=== PATIENT | female | born 1975 | race Caucasian/White ===

== ENCOUNTER 2019-10-19 17:49 | Emergency (ER) | payer MEDICAID ==
[~2019-10-19] VITALS: Ht 177.8 cm; Wt 104.3 kg
[2019-10-19 17:56] VITALS: BP_SYST 138
--- NOTE | 2019-10-19 18:06 | NUR ---
EKG DONE AT BEDSIDE
--- NOTE | 2019-10-19 18:08 | NUR ---
Placed in room 08 . Placed on monitoring tech, blood pressure machine and pulse oximeter. To gown for exam. Side rails up.
--- NOTE | 2019-10-19 18:10 | NUR ---
Pt AAOx4 ambulated into ED c/o 5/10 chest pressure and difficulty breathing upon waking this morning with worsening symptoms. + coughing. Pt denies n/v/d/abd pain. Skin dry and warm, labored breathing present. No other injuries/complaints per pt/noted. Will continue to monitor.
--- NOTE | 2019-10-19 18:10 | NUR ---
ER Dr. Metcalf at bedside examining patient.
[2019-10-19] MEDS ORDERED: NACL 0.9% 1,000 ML IV ONE (18:15)
[2019-10-19 18:29] LABS: BASOPHILS # (AUTO) 0.1 K/uL (0.0-0.2); BASOPHILS % (AUTO) 0.5 % (0.0-2.0); EOSINOPHILS # (AUTO) 0.1 K/uL (0.0-0.4); EOSINOPHILS % (AUTO) 0.9 % (0.0-4.0); HEMATOCRIT 44.7 % (36-48); HEMOGLOBIN 14.8 g/dL (12.0-16.0); LYMPHOCYTES # (AUTO) 1.4 K/uL (1.0-5.5); LYMPHOCYTES % (AUTO) 11.2 % (20.5-51.5); MEAN CORPUSCULAR HEMOGLOBIN 30 pg (27-31); MEAN CORPUSCULAR HGB CONC 33 % (32-36); MEAN CORPUSCULAR VOLUME 90 fL (79.0-98.0); MONOCYTES # (AUTO) 1.2 K/uL (0.0-1.0); MONOCYTES % (AUTO) 9.9 % (1.7-9.3); NEUTROPHILS # (AUTO) 9.7 K/uL (1.8-7.7); NEUTROPHILS % (AUTO) 77.5 % (40.0-70.0); PLATELET COUNT (AUTO) 342 K/uL (130-430); RED BLOOD CELL COUNT(AUTO) 4.97 MIL/uL (4.2-6.2); RED CELL DISTRIBUTION WIDTH 15.4 % (9.0-15.0); WHITE BLOOD COUNT (AUTO) 12.5 K/uL (4.8-10.8)
[2019-10-19 18:39] LABS: CALCIUM 8.1 mg/dL (8.4-11.0); CREATININE 0.81 mg/dL (0.55-1.30); POTASSIUM 3.9 mmol/L (3.5-5.1)
[2019-10-19 18:44] LABS: ALBUMIN 3.5 g/dL (3.4-4.8); TOTAL BILIRUBIN 0.7 mg/dL (0.0-1.0)
--- NOTE | 2019-10-19 20:10 | NUR ---
Pt off unit for Cta chest with contrast. Contrast consent signed
[2019-10-19] MEDS ORDERED: IOHEXOL 350 mgI/mL, 150 ML INFUS..BTL IV ONE (20:18)
[2019-10-19] MEDS ORDERED: KETOROLAC TROMETHAMINE 30 MG VIAL IVP ONE (21:30)
[2019-10-19] MEDS ORDERED: LevALBUTEROL HCL 1.25 MG/0.5 ML *CONC.* VIAL.NEB (XOPENEX CONC.) INH ONE (21:30)
[2019-10-19] MEDS ORDERED: ERYTHROMYCIN BASE 500 MG TABLET PO ONE (21:30)
--- NOTE | 2019-10-19 22:00 | NUR ---
Pt states "Im burning up, I feel really hot". Temperature re-assesed. 98.7 Degrees via Temporal Scanner
[2019-10-19] MEDS ORDERED: ERYTHROMYCIN BASE 500 MG TABLET ONE (22:18)
[2019-10-19] MEDS ORDERED: DIPHENHYDRAMINE INJ 50 MG/ML VIAL IVP ONE (23:15)
[2019-10-19] MEDS ORDERED: MORPHINE 4 MG/ML INJ. SYRINGE IVP ONE (23:15)
[2019-10-19 23:40] VITALS: BP_SYST 130
--- NOTE | 2019-10-19 23:40 | NUR ---
Patient given written and verbal discharge instructions and verbalizes understanding. ER MD discussed with patient the results and treatment provided. Patient in stable condition. ID arm band removed. IV catheter removed intact and dressing applied, no active bleeding. Rx of Tessalon, Erythromycin, ibuprofen, norco 5/325 given. Patient educated on pain management and to follow up with PMD. Pain Scale 3/10. Opportunity for questions provided and answered. Medication side effect fact sheet provided.
--- NOTE | 2019-10-20 11:36 | NUR ---
Received call from pharmacy, erythromycin not available, Per Dr Jaquez change antibiotic to Zithromax 250mg x 5 days.
== END 2019-10-19 23:40 | disposition home or self-care (01) ==
LOC: SED 17:49
DX: R07.81 Pleurodynia (principal); J98.8 Other specified respiratory disorders; I10 Essential (primary) hypertension; Z88.0 Allergy status to penicillin
CPT/HCPCS: 36415; 36600; 71045; 71275; 80053; 82803; 85025; 86710; 93005; 96374; 96375; 99284; J1200; J1885; J2270; J7030; J7612; Q9967

== ENCOUNTER 2021-04-27 13:38 | Inpatient (IN) | payer OTHER, SELFPAY ==
[~2021-04-27] VITALS: Ht 170.2 cm; Wt 133.4 kg
[~2021-04-27 13:38] MED LIST: ALBMDI INH; ASA81 PO; BIRTH CONTROL; FAMO20TA8 PO; FOLI-43 PO; GUAI5SYR PO; LIB10 PO; LISI10TA29 PO; SUCR1ORA4 GT; THIA50TA10 PO; Thiamine Hcl PO
[2021-04-27 13:46] VITALS: BP_SYST 162
--- NOTE | 2021-04-27 13:50 | NUR ---
Patient to ER bed 7 to gown for evaluation. Side rails up. Report given to Sofi BENNETT.
--- NOTE | 2021-04-27 13:55 | NUR ---
Pt walked in to ER with c/o chest pain and BLE swelling x2 days, reports drinking heavily d/t recently losing her sister. H/O HTN and Pulmonary HTN. V/S stable, no acute distress noted.
--- NOTE | 2021-04-27 14:00 | NUR ---
DR. BRUCE AT BEDSIDE TO ASSESS.
--- NOTE | 2021-04-27 14:11 | NUR ---
Lab at bedside for blood draw.
--- NOTE | 2021-04-27 14:15 | NUR ---
Radiology at bedside for CXR.
[2021-04-27 14:22] LABS: BASOPHILS # (AUTO) 0.1 K/uL (0.0-0.2); BASOPHILS % (AUTO) 0.7 % (0.0-2.0); EOSINOPHILS % (AUTO) 0.1 % (0.0-4.0); LYMPHOCYTES # (AUTO) 0.9 K/uL (1.0-5.5); MEAN CORPUSCULAR HEMOGLOBIN 27 pg (27-31); MEAN CORPUSCULAR HGB CONC 33 % (32-36); MEAN CORPUSCULAR VOLUME 84 fL (79.0-98.0); MONOCYTES # (AUTO) 0.9 K/uL (0.0-1.0); MONOCYTES % (AUTO) 8.3 % (1.7-9.3); NEUTROPHILS # (AUTO) 8.5 K/uL (1.8-7.7); NEUTROPHILS % (AUTO) 81.9 % (40.0-70.0); PLATELET COUNT (AUTO) 334 K/uL (130-430); RED BLOOD CELL COUNT(AUTO) 4.75 MIL/uL (4.2-6.2); WHITE BLOOD COUNT (AUTO) 10.4 K/uL (4.8-10.8)
[2021-04-27 14:36] LABS: CALCIUM 8.9 mg/dL (8.4-11.0); CREATININE 0.96 mg/dL (0.55-1.30); POTASSIUM 4.1 mmol/L (3.5-5.1)
[2021-04-27 14:38] LABS: PROTHROMBIN TIME 10.4 SECS (9.5-12.5)
[2021-04-27 14:41] LABS: ALBUMIN 3.9 g/dL (3.4-4.8); TOTAL BILIRUBIN 1.7 mg/dL (0.0-1.0)
[2021-04-27] MEDS ORDERED: MORPHINE 4 MG INJ. 4 MG/ML VIAL IVP ONE (15:15)
[2021-04-27] MEDS ORDERED: FUROSEMIDE 40 MG/4 ML VIAL IVP ONE (15:15)
--- NOTE | 2021-04-27 15:15 | NUR ---
# 22 gauge angiocath placed to LFA. Use of asceptic technique. Opsite placed over site. Blood return noted. Flushed with 10 cc of normal saline. No evidence of infiltration noted. Patient tolerated well.
[2021-04-27] MEDS ORDERED: ONDANSETRON HCL 4 MG/2 ML VIAL ONE (15:29)
[2021-04-27] MEDS ORDERED: ONDANSETRON HCL 4 MG/2 ML VIAL IVP ONE (15:30)
[2021-04-27] MEDS ORDERED: FLUT1BLS3 INH (15:39)
[2021-04-27] MEDS ORDERED: ESCI10TA PO (15:39)
[2021-04-27] MEDS ORDERED: FURO-149 PO (15:39)
[2021-04-27] MEDS ORDERED: VALS80TA2 PO (15:39)
--- NOTE | 2021-04-27 15:44 | NUR ---
Med rec, belongings list and famiy notified regading hospital admission
[2021-04-27] MEDS ORDERED: LORazepam 2 MG/ML VIAL IVP ONE (17:15)
--- NOTE | 2021-04-27 17:22 | NUR ---
Admit orders received from Dr. Morales, pt to go to Tele. Talked to charge nurse Diamond, no beds available, pt will be an ER hold for now.
--- NOTE | 2021-04-27 17:43 | NUR ---
Dinner tray requested for patient.
--- NOTE | 2021-04-27 19:16 | NUR ---
Care of patient endorsed to SABRINA Gusman. Pt currently resting in bed, no acute distress noted.
--- NOTE | 2021-04-27 19:17 | NUR ---
Received endorsement from day shift, AAOX4, breathing spontaneously at room air, not in distress noted, denies chest pain. With IV cannula g22 at left forearm on saline lock noted. Admitted as a case of Non STEMI under the care of Dr. Morales. Vital signs stable
--- NOTE | 2021-04-27 20:00 | NUR ---
ADMISSION NOTE Received patient from ER via gurney. Patient admitted with diagnosis of N-STEMI. Patient is awake, alert, oriented X 4. Patient oriented to hospital room, call light, toileting, pain management and safety-teach back done. Patient informed that ELIA/MARIXA will be nurse and that their room number is 118B. Personal belongings checked and Belongings List documented. Call light within reach.
--- NOTE | 2021-04-27 20:00 | NUR ---
Transfer to Telemetry 118b via ACLS protocol. Licensed nurse present. IV present no signs or symptoms of infiltration.
--- NOTE | 2021-04-27 20:10 | NUR ---
Endorsed to SABRINA Dewitt in stable condition for continuity of care
[2021-04-27 20:15] VITALS: BP_SYST 119
[2021-04-27] MEDS ORDERED: NALOXONE HCL 0.4 MG/ML AMP (NARCAN) IVP PRN (22:15)
[2021-04-27] MEDS ORDERED: *LOVENOX 1MG/KG Q12H/PHARMACY XX ONE (22:15)
[2021-04-27] MEDS ORDERED: ACETAMINOPHEN 325 MG TABLET PO PRN (22:15)
[2021-04-27] MEDS ORDERED: MORPHINE 4 MG INJ. 4 MG/ML VIAL IVP PRN (22:15)
[2021-04-27] MEDS ORDERED: ASPIRIN 325 MG TABLET PO SCH (22:15)
[2021-04-27 22:20] VITALS: BP_SYST 119
[2021-04-27] MEDS ORDERED: ASPIRIN 325 MG TABLET (ECOTRIN) PO ONE (22:31)
[2021-04-27] MEDS ORDERED: ENOXAPARIN SODIUM 100 MG/ML SYRINGE ONE (22:32)
[2021-04-27] MEDS ORDERED: ENOXAPARIN SODIUM 40 MG/0.4 ML SYRINGE ONE (22:33)
[2021-04-27] MEDS: ENOXAPARIN SODIUM 40 MG/0.4 ML SYRINGE SUBCUT SCH (22:34)
[2021-04-27] MEDS: ENOXAPARIN SODIUM 100 MG/ML SYRINGE SUBCUT SCH (22:35)
[2021-04-27] MEDS ORDERED: ASPIRIN 325 MG TABLET PO ONE (22:45)
[2021-04-27] MEDS: ALBUTEROL SULFATE 0.083% 2.5 MG/3 ML VIAL.NEB INH SCH (23:11)
--- NOTE | 2021-04-27 23:33 | NUR ---
NOTIFIED DR. RAMAN REGARDING PT CRITICAL LAB (TROPONIN 0.205). NO NEW ORDER RECEIVED.
[2021-04-28] VITALS: BP_SYST 113
--- NOTE | 2021-04-28 03:30 | NUR ---
DR. POLANCO AT THE BEDSIDE.
[2021-04-28] MEDS: MORPHINE 2 MG/ML INJ. SYRINGE IVP PRN ×4 (03:38→21:26)
[2021-04-28] MEDS ORDERED: ONDANSETRON HCL 4 MG/2 ML VIAL IVP PRN (03:45)
--- NOTE | 2021-04-28 04:35 | NUR ---
CONSULT REASON FOR CONSULT: NSTEMI PERSON I SPOKE WITH: CONNIE CONSULTING PHYSICIAN: DR. ANTON SIGN BUILDER PHONE NUMBER: [phone] ORDERING PHYSICIAN: DR. POLANCO
[2021-04-28] MEDS: NORMAL SALINE 5 ML DISP.SYRIN IVF SCH ×3 (06:18→21:24)
[2021-04-28 06:32] LABS: BASOPHILS # (AUTO) 0.1 K/uL (0.0-0.2); BASOPHILS % (AUTO) 1.1 % (0.0-2.0); EOSINOPHILS # (AUTO) 0.1 K/uL (0.0-0.4); EOSINOPHILS % (AUTO) 1.3 % (0.0-4.0); HEMATOCRIT 39.3 % (36-48); HEMOGLOBIN 12.6 g/dL (12.0-16.0); LYMPHOCYTES # (AUTO) 1.6 K/uL (1.0-5.5); LYMPHOCYTES % (AUTO) 21.3 % (20.5-51.5); MEAN CORPUSCULAR HEMOGLOBIN 27 pg (27-31); MEAN CORPUSCULAR HGB CONC 32 % (32-36); MEAN CORPUSCULAR VOLUME 85 fL (79.0-98.0); MONOCYTES % (AUTO) 13.5 % (1.7-9.3); NEUTROPHILS # (AUTO) 4.7 K/uL (1.8-7.7); NEUTROPHILS % (AUTO) 62.8 % (40.0-70.0); PLATELET COUNT (AUTO) 318 K/uL (130-430); RED BLOOD CELL COUNT(AUTO) 4.64 MIL/uL (4.2-6.2); WHITE BLOOD COUNT (AUTO) 7.5 K/uL (4.8-10.8)
--- NOTE | 2021-04-28 06:57 | NUR ---
CLOSING NOTE PATIENT IS RESTING IN HER BED. NO SIGNS OF ACUTE DISTRESS NOTED. PATIENT DENIES ANY PAIN AT THIS TIME. PATIENT IS BREATHING EASY AND UNLABORED. PATIENT IS ON 3L OF NC. NO SIGNS OF RESPIRATORY DISTRESS NOTED. IV IS INTACT AND SALINE LOCKED. NO SIGNS OF INFILTRATION NOTED. CALL LIGHT WITHIN REACH. BED ALARM IS ON. BED IS LOCKED AND PLACED IN THE LOWEST POSITION. SAFETY AND FALL PRECAUTIONS IN PLACED. ALL NEEDS ARE MET THROUGHOUT SHIFT. WILL CONTINUE TO MONITOR UNTIL ENDORSE TO DAY SHIFT RN.
[2021-04-28 07:15] LABS: ALBUMIN 3.4 g/dL (3.4-4.8); CALCIUM 8.8 mg/dL (8.4-11.0); CREATININE 0.84 mg/dL (0.55-1.30); POTASSIUM 3.3 mmol/L (3.5-5.1); TOTAL BILIRUBIN 1.5 mg/dL (0.0-1.0)
[2021-04-28 07:45] VITALS: BP_SYST 131
[2021-04-28] MEDS: CITALOPRAM HYDROBROMIDE 20 MG TABLET PO SCH (08:42)
[2021-04-28] MEDS: ASPIRIN 325 MG TABLET PO SCH (08:42)
[2021-04-28] MEDS: NEPHROVITE, (FOLIC ACID/VITAMIN B COMP W-C 1 TAB) PO SCH (08:42)
[2021-04-28] MEDS: FUROSEMIDE 40 MG TABLET PO SCH (08:43)
[2021-04-28] MEDS: LOSARTAN POTASSIUM 50 MG TABLET (COZAAR) PO SCH (08:44)
[2021-04-28] MEDS: ALBUTEROL SULFATE 0.083% 2.5 MG/3 ML VIAL.NEB INH SCH ×5 (08:45→23:42)
[2021-04-28] MEDS: ENOXAPARIN SODIUM 40 MG/0.4 ML SYRINGE SUBCUT SCH (08:45)
[2021-04-28] MEDS: BUDESONIDE 0.5 MG/2 ML AMPUL.NEB INH SCH ×2 (08:46→19:00)
[2021-04-28] MEDS: ENOXAPARIN SODIUM 100 MG/ML SYRINGE SUBCUT SCH (08:46)
[2021-04-28] MEDS ORDERED: FLUTICASONE/VILANTEROL 1 EACH BLST.W.DEV INH SCH (09:00)
--- NOTE | 2021-04-28 09:50 | NUR ---
ASSESSED AND EXAMINED PT , THIS RN CONCURS WITH EMILE CALVIN'S ASSESSMENT OF PT.
[2021-04-28] MEDS: THIAMINE HCL 100 MG TABLET PO SCH (09:52)
[2021-04-28] MEDS: LORazepam 2 MG/ML VIAL IVP PRN (09:52)
[2021-04-28] MEDS: FOLIC ACID 1 MG TABLET PO SCH (09:52)
--- NOTE | 2021-04-28 09:52 | NUR ---
pt given ativan for anxiety.
--- NOTE | 2021-04-28 10:10 | NUR ---
PT GIVEN MORPHINE FOR LEFT SIDED CHEST PAIN.
--- NOTE | 2021-04-28 10:13 | NUR ---
DR YIP HERE AND SPOKE WITH PT.
[2021-04-28] MEDS ORDERED: POTASSIUM CHLORIDE 20 MEQ TAB.PRT.SR PO ONE (10:45)
[2021-04-28 12:56] VITALS: BP_SYST 113
[2021-04-28 14:07] LABS: BARBITURATE, URINE NEGATIVE (NEG <=200); BENZODIAZEPINE, URINE POSITIVE (NEG <=150); CANNABINOID, URINE NEGATIVE (NEG <=50); COCAINE, URINE NEGATIVE (NEG <=150); METHAMPHETAMINES SCREEN,URINE NEGATIVE (NEG <=500); OPIATE, URINE POSITIVE (NEG <=100); PHENCYCLIDINE SCREEN,URINE NEGATIVE (NEG <=25); UR TRICYCLIC ANTIDEPRESSANTS NEGATIVE (NEG <=300); URINE AMPHETAMINE NEGATIVE (NEG <=500); URINE METHADONE NEGATIVE (NEG <=200); URINE OXYCODONE SCREEN NEGATIVE (NEG <=100); URINE PROPOXYPHENE SCREEN NEGATIVE (NEG <=300)
--- NOTE | 2021-04-28 14:56 | NUR ---
rounded on patient, patient in bed, no complaints of pain.
[2021-04-28 16:07] VITALS: BP_SYST 130
--- NOTE | 2021-04-28 18:40 | NUR ---
CLOSING NOTES, PT STILL C/O LEFT SHOULDER PAIN, GIVEN PAIN MEDS 2X AND ALSO GIVEN X1 ATIVAN FOR ANXIETY. THIS AM PT WAS NOTED TO BE SOB AFTER AMBULATING TO THE BATHROOM. SEEN BY DR ANTON AND DR YIP. PT DENIES PAIN AT THIS TIME. WILL ENDORSE TO NIGHT NURSE.
--- NOTE | 2021-04-28 19:30 | NUR ---
OPENING NOTE RECEIVED PATIENT REPORT FROM DAY SHIFT RN. PATIENT IS RESTING IN HER BED. NO SIGNS OF ACUTE DISTRESS NOTED. PATIENT DENIES CHEST PAIN AT THIS TIME. PATIENT IS BREATHING EASY AND UNLABORED. PATIENT IS ON 3L OF NC. NO SIGNS OF RESPIRATORY DISTRESS NOTED. IV IS INTACT AND SALINE LOCKED. NO SIGNS OF INFILTRATION NOTED. CALL LIGHT WITHIN REACH. BED ALARM IS ON. BED IS LOCKED AND PLACED IN THE LOWEST POSITION. SAFETY AND FALL PRECAUTIONS IN PLACED. WILL CONTINUE TO MONITOR.
[2021-04-28 20:00] VITALS: BP_SYST 113
--- NOTE | 2021-04-28 21:30 | NUR ---
UPDATED TO WALE (MOTHER).
--- NOTE | 2021-04-28 23:55 | NUR ---
HUNG VANCOMYCIN ORDERED RATE. NO SIGNS OF ADVERSE REACTION NOTED. PATIENT TOLERATING WELL. WILL CONTINUE TO MONITOR. Addendum: 04/29/21 at 0358 by Nikita Ibarra RN DISCARD. WRONG PATIENT
[2021-04-29] VITALS: BP_SYST 123
[2021-04-29] MEDS: ALBUTEROL SULFATE 0.083% 2.5 MG/3 ML VIAL.NEB INH SCH ×6 (03:00→23:00)
[2021-04-29] MEDS: NORMAL SALINE 5 ML DISP.SYRIN IVF SCH ×3 (05:47→23:05)
[2021-04-29] MEDS: LORazepam 2 MG/ML VIAL IVP PRN ×3 (06:06→23:06)
--- NOTE | 2021-04-29 06:59 | NUR ---
CLOSING NOTE PATIENT IS RESTING IN HER BED. NO SIGNS OF ACUTE DISTRESS NOTED. PATIENT DENIES CHEST PAIN AT THIS TIME. PATIENT IS BREATHING EASY AND UNLABORED. PATIENT IS ON 3L OF NC. NO SIGNS OF RESPIRATORY DISTRESS NOTED. IV IS INTACT AND SALINE LOCKED. NO SIGNS OF INFILTRATION NOTED. CALL LIGHT WITHIN REACH. BED ALARM IS ON. BED IS LOCKED AND PLACED IN THE LOWEST POSITION. SAFETY AND FALL PRECAUTIONS IN PLACED. ALL NEEDS ARE MET THROUGHOUT SHIFT. WILL CONTINUE TO MONITOR UNTIL ENDORSE TO DAY SHIFT RN.
[2021-04-29] MEDS: BUDESONIDE 0.5 MG/2 ML AMPUL.NEB INH SCH ×2 (07:25→19:00)
--- NOTE | 2021-04-29 08:20 | NUR ---
Opening note Patient is resting in bed A&Ox4. No complaint of pain or discomfort, no signs or symptoms of respiratory distress. Iv is in place, no signs or symptoms of infiltration. Educated patient on plan of care, patient verbalized understanding Bed is in lowest position, fall and aspiration precautions are in place. Will continue to monitor.
[2021-04-29 08:35] VITALS: BP_SYST 115
[2021-04-29] MEDS: ASPIRIN 325 MG TABLET PO SCH (08:39)
[2021-04-29] MEDS: CITALOPRAM HYDROBROMIDE 20 MG TABLET PO SCH (08:39)
[2021-04-29] MEDS: LOSARTAN POTASSIUM 50 MG TABLET (COZAAR) PO SCH (08:39)
[2021-04-29] MEDS: FUROSEMIDE 40 MG TABLET PO SCH (08:40)
[2021-04-29] MEDS: NEPHROVITE, (FOLIC ACID/VITAMIN B COMP W-C 1 TAB) PO SCH (08:40)
[2021-04-29] MEDS: FOLIC ACID 1 MG TABLET PO SCH (08:40)
[2021-04-29] MEDS: THIAMINE HCL 100 MG TABLET PO SCH (08:40)
--- NOTE | 2021-04-29 11:55 | NUR ---
CONSULT PULMONOLOGY RESP FAILURE MOODY MORENO SENT PAGE TO DR MCCARTNEY
[2021-04-29 12:00] VITALS: BP_SYST 108
--- NOTE | 2021-04-29 12:57 | NUR ---
Dietitian Recommendations *Continue Cardiac diet. *Encourage lifestyle changes and diet modification for weight loss. Please see Nutritional Assessment for details KAMLESH WIN
[2021-04-29 15:35] LABS: BASOPHILS # (AUTO) 0.1 K/uL (0.0-0.2); BASOPHILS % (AUTO) 0.9 % (0.0-2.0); EOSINOPHILS # (AUTO) 0.2 K/uL (0.0-0.4); EOSINOPHILS % (AUTO) 2.4 % (0.0-4.0); HEMATOCRIT 39.1 % (36-48); HEMOGLOBIN 12.6 g/dL (12.0-16.0); LYMPHOCYTES # (AUTO) 1.1 K/uL (1.0-5.5); LYMPHOCYTES % (AUTO) 16.3 % (20.5-51.5); MEAN CORPUSCULAR HEMOGLOBIN 28 pg (27-31); MEAN CORPUSCULAR HGB CONC 32 % (32-36); MEAN CORPUSCULAR VOLUME 86 fL (79.0-98.0); MONOCYTES # (AUTO) 0.9 K/uL (0.0-1.0); MONOCYTES % (AUTO) 12.7 % (1.7-9.3); NEUTROPHILS # (AUTO) 4.5 K/uL (1.8-7.7); NEUTROPHILS % (AUTO) 67.7 % (40.0-70.0); PLATELET COUNT (AUTO) 300 K/uL (130-430); RED BLOOD CELL COUNT(AUTO) 4.56 MIL/uL (4.2-6.2); RED CELL DISTRIBUTION WIDTH 17.2 % (9.0-15.0); WHITE BLOOD COUNT (AUTO) 6.7 K/uL (4.8-10.8)
[2021-04-29 15:53] LABS: CALCIUM 9.2 mg/dL (8.4-11.0); CREATININE 1.03 mg/dL (0.55-1.30); POTASSIUM 4.1 mmol/L (3.5-5.1)
--- NOTE | 2021-04-29 18:36 | NUR ---
Closing note Patient is resting in bed A&Ox4. No complaint of pain or discomfort, no signs or symptoms of respiratory distress. Iv is in place, no signs or symptoms of infiltration. All needs were met. Bed is in lowest position, fall and aspiration precautions are in place. Will endorse report to night auditor.
--- NOTE | 2021-04-29 19:30 | NUR ---
Opening note: Patient is resting in bed A&Ox4. No complaint of pain or discomfort, no signs or symptoms of respiratory distress. Iv is in place, no signs or symptoms of infiltration. Breathing nonlabored to O2 via nasal canula @3L. Bed is in lowest position, fall and aspiration precautions are in place. Will continue to monitor.
[2021-04-29 20:00] VITALS: BP_SYST 121
--- NOTE | 2021-04-29 22:35 | NUR ---
RN Rounds pt vital signs stable. pt complain of pain in upper anterior thigh areas upon movement. She states they "hurt more now that swelling is down" will medicate for pain
[2021-04-29] MEDS: MORPHINE 2 MG/ML INJ. SYRINGE IVP PRN (23:16)
[2021-04-30] VITALS (7 sets, daily range): BP systolic 102–115
--- NOTE | 2021-04-30 02:00 | NUR ---
RN Rounds pt vital signs stable. pt resting in bed. no s/s of acute distress noted. will ctm.
[2021-04-30] MEDS: ALBUTEROL SULFATE 0.083% 2.5 MG/3 ML VIAL.NEB INH SCH ×3 (03:00→15:49)
[2021-04-30] MEDS: NORMAL SALINE 5 ML DISP.SYRIN IVF SCH ×2 (05:40→17:19)
--- NOTE | 2021-04-30 06:33 | NUR ---
Closing note: Patient is resting in bed A&Ox4. Iv is in place, no signs or symptoms of infiltration. Breathing nonlabored to O2 via nasal canula @3L. Bed is in lowest position, fall and aspiration precautions maintained throughout shift. All needs met throughout shift. Will continue to monitor until care endorsed to dayshift RN.
[2021-04-30 06:47] LABS: CREATININE 0.79 mg/dL (0.55-1.30); POTASSIUM 3.9 mmol/L (3.5-5.1)
[2021-04-30 06:52] LABS: BASOPHILS # (AUTO) 0.1 K/uL (0.0-0.2); BASOPHILS % (AUTO) 1.1 % (0.0-2.0); EOSINOPHILS # (AUTO) 0.2 K/uL (0.0-0.4); HEMATOCRIT 40.9 % (36-48); HEMOGLOBIN 12.8 g/dL (12.0-16.0); LYMPHOCYTES # (AUTO) 1.5 K/uL (1.0-5.5); LYMPHOCYTES % (AUTO) 22.4 % (20.5-51.5); MEAN CORPUSCULAR HEMOGLOBIN 27 pg (27-31); MEAN CORPUSCULAR HGB CONC 31 % (32-36); MEAN CORPUSCULAR VOLUME 86 fL (79.0-98.0); MONOCYTES # (AUTO) 0.9 K/uL (0.0-1.0); MONOCYTES % (AUTO) 13.8 % (1.7-9.3); NEUTROPHILS % (AUTO) 59.7 % (40.0-70.0); PLATELET COUNT (AUTO) 304 K/uL (130-430); RED BLOOD CELL COUNT(AUTO) 4.73 MIL/uL (4.2-6.2); RED CELL DISTRIBUTION WIDTH 17.8 % (9.0-15.0); WHITE BLOOD COUNT (AUTO) 6.7 K/uL (4.8-10.8)
--- NOTE | 2021-04-30 07:30 | NUR ---
AM ROUNDS: PATIENT SLEEPING DURING ROUNDS. O2 2L/NC,GOOD SATURATION. IV SALINE LOCK AT LEFT ARM INTACT,WITH SMALL BRUISED NEAR THE SITE.SAFETY MEASURES RENDERED. STABLE.
[2021-04-30] MEDS: BUDESONIDE 0.5 MG/2 ML AMPUL.NEB INH SCH (08:26)
[2021-04-30] MEDS: LOSARTAN POTASSIUM 50 MG TABLET (COZAAR) PO SCH (09:00)
[2021-04-30] MEDS ORDERED: ALBU8.5H8 INH (09:35)
[2021-04-30] MEDS: CITALOPRAM HYDROBROMIDE 20 MG TABLET PO SCH (09:42)
[2021-04-30] MEDS: NEPHROVITE, (FOLIC ACID/VITAMIN B COMP W-C 1 TAB) PO SCH (09:42)
[2021-04-30] MEDS: THIAMINE HCL 100 MG TABLET PO SCH (09:43)
[2021-04-30] MEDS: ASPIRIN 325 MG TABLET PO SCH (09:44)
[2021-04-30] MEDS: FOLIC ACID 1 MG TABLET PO SCH (09:44)
[2021-04-30] MEDS: FUROSEMIDE 40 MG TABLET PO SCH (09:44)
[2021-04-30] MEDS: LORazepam 2 MG/ML VIAL IVP PRN ×2 (09:57→18:55)
[2021-04-30] MEDS ORDERED: POLYETHYLENE GLYCOL 3350, 17 GM/ POWD.PACK PO ONE (10:15)
--- NOTE | 2021-04-30 10:33 | NUR ---
SYRUP MAKER COOK received a referral for Fuel Testing Technician consult, to provide supportive services to Pt. with a HX of depression and current ETOH abuse. Pt. was open to speak with SYRUP MAKER COOK, she relayed that she recently lost her sister to stage 4 cancer and she has been feeling depressed and has resumed drinking heavily, she denied any present S/I. 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 Pt. is currently taking Lexapro, Rx is through her PCP and is medication compliant. She is not in OP MH Tx or engaging in therapy. SYRUP MAKER COOK provided supportive counseling and psychoeducation regarding co- occurring disorders and MAT, namely Vivitrol for ETOH Abuse Tx. Pt. was able to identify her support system as her mother, niece and a friend who runs an A/A group on-line. Pt. intends to enter [facility] [place] for alcohol abuse. [facility] provided Pt. with a list of local agencies that are covered through her health plan [employer], for intensive outpatient services for co-occurring disorders and MAT Tx. Pt. appears motivated to obtain sobriety, she was encouraged to look into MH Tx , to assist her in the grief process, depression and support her in her recovery. Pt. was receptive and indicated she would contact the agencies because she want to feel better overall. No further inquiry or request from Pt. at this time. Fuel Testing Technician will remain available as needed.
[2021-04-30] MEDS: MORPHINE 2 MG/ML INJ. SYRINGE IVP PRN (13:16)
--- NOTE | 2021-04-30 13:20 | NUR ---
Ultrasound: Bilateral thigh ultrasound ,tech at the bedside,start up.
--- NOTE | 2021-04-30 17:20 | NUR ---
CALLED [facility] MS RIGO PERSAUD, RE: O2 FOR HOME USE. RIGO GAVE ME THE NUMBER OF [employer] TO FOLLOW UP THE TIME OF DELIVERY OF THE O2.
--- NOTE | 2021-04-30 17:47 | NUR ---
SPOKE TO JESSICA OF [facility], ETA FOR THE PORTABLE O2 TANK DELIVERY IS BETWEEN 1800 - 2100 TODAY, SAME WITH THE O2 CONCENTRATOR THAT WILL BE DELIVERED IN THE HOUSE ALSO BETWEEN 1800 - 2100. JESSICA OF [facility] STRESSED THAT PT HAS A CO PAY OF 15%. NOTIFIED SABRINA CISNEROS TO INFORM PT OF THE CONVERSATION WITH [facility]. TEL # OF [facility] IS [phone].
--- NOTE | 2021-04-30 18:43 | NUR ---
END OF SHIFT: PATIENT INSTRUCTED REGARDING OXYGEN DELIVERY AT HOME/HOSPITAL FOR PORTABLE O2 TANK BETWEEN 6PM-9PM. STABLE. SAFETY MEASURES RENDERED.DC HOME TONIGHT WITH HOME O2 USE ARRANGED BY HCP CASE MGT.WAITING FOR PORTABLE O2 DELIVERY HERE AT THE HOSPITAL.
--- NOTE | 2021-04-30 19:30 | NUR ---
[facility] Await[facility] O2 delivery for pt to be discharged to home with home health + portable home oxygen 2 LNC. Pt vital signs stable. Will continue to monitor.
[2021-05-01] MEDS ORDERED: POLYETHYLENE GLYCOL 3350, 17 GM/ POWD.PACK PO SCH (09:00)
== END 2021-04-30 20:30 | disposition home health service (06) | DRG 280 ==
LOC: SED 13:38 → STU 17:18
PROVIDERS: ADMIT Internal Medicine Hospice and Palliative Medicine; ATTEND Internal Medicine Hospice and Palliative Medicine
DX: I27.20 Pulmonary hypertension, unspecified (principal); J96.01 Acute respiratory failure with hypoxia; I21.A1 Myocardial infarction type 2; E87.1 Hypo-osmolality and hyponatremia; Z68.42 Body mass index [BMI] 45.0-49.9, adult; I42.9 Cardiomyopathy, unspecified; I11.0 Hypertensive heart disease with heart failure; Y90.9 Presence of alcohol in blood, level not specified; I27.81 Cor pulmonale (chronic); E80.6 Other disorders of bilirubin metabolism; E66.01 Morbid (severe) obesity due to excess calories; F10.20 Alcohol dependence, uncomplicated; J44.9 Chronic obstructive pulmonary disease, unspecified; G47.30 Sleep apnea, unspecified; I87.8 Other specified disorders of veins; Z20.822 Contact with and (suspected) exposure to COVID-19; F32.9 Major depressive disorder, single episode, unspecified; I50.9 Heart failure, unspecified; Z88.0 Allergy status to penicillin; Z79.899 Other long term (current) drug therapy; I25.2 Old myocardial infarction; Z82.49 Family history of ischemic heart disease and other diseases of the circulatory system
CPT/HCPCS: 36415; 36600; 71045; 80048; 80053; 80061; 80307; 82150; 82803-TC; 83690; 83880; 84484; 85025; 85379; 85610-TC; 85730-TC; 93005; 93970; 94640; 94760; 96374; 96375; 99285; G0378; J1650; J1940; J2060; J2270; J2405; J7613; J7626

== ENCOUNTER 2022-01-21 10:53 | Inpatient (IN) | payer OTHER, SELFPAY ==
[~2022-01-21] VITALS: Ht 170.2 cm; Wt 127.0 kg
[2022-01-21 10:53] VITALS: BP_SYST 146
[~2022-01-21 10:53] MED LIST changes: -ALBMDI INH; -ASA81 PO; +ASPI-1155 PO; -BIRTH CONTROL; -FAMO20TA8 PO; +FLUT1BLS3 INH; -FOLI-43 PO; +FURO-149 PO; -GUAI5SYR PO; -LIB10 PO; -LISI10TA29 PO; +POTA-197 PO; +SILD20TA2 PO; -SUCR1ORA4 GT; -THIA50TA10 PO; -Thiamine Hcl PO; +VALS80TA2 PO
[2022-01-21] MEDS ORDERED: IPRATROPIUM/ALBUTEROL SULFATE 3 ML AMPUL.NEB (DUONEB) INH ONE (11:45)
[2022-01-21] MEDS ORDERED: IOHEXOL 350 mgI/mL, 150 ML INFUS..BTL IV ONE (11:46)
[2022-01-21 11:47] LABS: BASOPHILS % (AUTO) 0.7 % (0.0-2.0); EOSINOPHILS % (AUTO) 0.9 % (0.0-4.0); HEMATOCRIT 38.8 % (36-48); HEMOGLOBIN 13.2 g/dL (12.0-16.0); LYMPHOCYTES # (AUTO) 0.9 K/uL (1.0-5.5); LYMPHOCYTES % (AUTO) 20.1 % (20.5-51.5); MEAN CORPUSCULAR HEMOGLOBIN 31 pg (27-31); MEAN CORPUSCULAR HGB CONC 34 % (32-36); MEAN CORPUSCULAR VOLUME 90 fL (79.0-98.0); MONOCYTES # (AUTO) 0.5 K/uL (0.0-1.0); MONOCYTES % (AUTO) 11.1 % (1.7-9.3); NEUTROPHILS % (AUTO) 67.2 % (40.0-70.0); PLATELET COUNT (AUTO) 297 K/uL (130-430); RED BLOOD CELL COUNT(AUTO) 4.32 MIL/uL (4.2-6.2); RED CELL DISTRIBUTION WIDTH 17.9 % (9.0-15.0); WHITE BLOOD COUNT (AUTO) 4.4 K/uL (4.8-10.8)
[2022-01-21 12:08] LABS: CALCIUM 9.4 mg/dL (8.4-11.0); CREATININE 0.86 mg/dL (0.55-1.30); POTASSIUM 3.5 mmol/L (3.5-5.1)
[2022-01-21 12:17] LABS: ALBUMIN 3.7 g/dL (3.4-4.8); TOTAL BILIRUBIN 1.4 mg/dL (0.0-1.0)
[2022-01-21] MEDS ORDERED: ONDANSETRON HCL 4 MG/2 ML VIAL IVP ONE ×2 (12:30→18:45)
[2022-01-21] MEDS ORDERED: KETOROLAC TROMETHAMINE 30 MG VIAL IVP ONE (14:15)
[2022-01-21] MEDS ORDERED: ASPIRIN 325 MG TABLET PO ONE (14:15)
[2022-01-21 15:57] VITALS: BP_SYST 122
[2022-01-21 16:09] VITALS: BP_SYST 122
[2022-01-21] MEDS ORDERED: ALBUTEROL SULFATE 0.083% 2.5 MG/3 ML VIAL.NEB INH PRN (16:15)
[2022-01-21] MEDS ORDERED: IPRATROPIUM BROM 0.5 MG/2.5 ML VIAL.NEB (ATROVENT) INH PRN (16:15)
[2022-01-21] MEDS ORDERED: ASPIRIN 81 MG TAB.CHEW PO ONE (16:30)
[2022-01-21] MEDS: AZITHROMYCIN 500 MG in NS 250 ML IV SCH (18:08)
[2022-01-21] MEDS: IPRATROPIUM BROM 0.5 MG/2.5 ML VIAL.NEB (ATROVENT) INH SCH (20:04)
[2022-01-21] MEDS: BUDESONIDE 0.5 MG/2 ML AMPUL.NEB INH SCH (20:04)
[2022-01-21] MEDS: ALBUTEROL SULFATE 0.083% 2.5 MG/3 ML VIAL.NEB INH SCH (20:04)
[2022-01-21 20:30] VITALS: BP_SYST 130
[2022-01-21] MEDS: SILDENAFIL CITRATE 20 MG TABLET PO SCH (21:47)
[2022-01-21] MEDS: methylPREDNISolone SOD SUCC/PF 62.5 MG/ML VIAL IVP SCH (21:48)
[2022-01-21] MEDS: MORPHINE 2 MG/ML INJ. SYRINGE IVP PRN (22:08)
[2022-01-22 00:20] VITALS: BP_SYST 140
[2022-01-22] MEDS: ALBUTEROL SULFATE 0.083% 2.5 MG/3 ML VIAL.NEB INH SCH ×4 (02:10→20:21)
[2022-01-22] MEDS: IPRATROPIUM BROM 0.5 MG/2.5 ML VIAL.NEB (ATROVENT) INH SCH ×4 (02:10→20:21)
[2022-01-22] MEDS: MORPHINE 2 MG/ML INJ. SYRINGE IVP PRN ×3 (02:46→23:24)
[2022-01-22] MEDS: methylPREDNISolone SOD SUCC/PF 62.5 MG/ML VIAL IVP SCH ×3 (06:18→23:19)
[2022-01-22] MEDS: BUDESONIDE 0.5 MG/2 ML AMPUL.NEB INH SCH ×2 (07:00→20:21)
[2022-01-22 07:46] LABS: BASOPHILS % (AUTO) 0.1 % (0.0-2.0); LYMPHOCYTES # (AUTO) 0.3 K/uL (1.0-5.5); LYMPHOCYTES % (AUTO) 6.8 % (20.5-51.5); MEAN CORPUSCULAR HEMOGLOBIN 30 pg (27-31); MEAN CORPUSCULAR HGB CONC 33 % (32-36); MEAN CORPUSCULAR VOLUME 91 fL (79.0-98.0); MONOCYTES # (AUTO) 0.1 K/uL (0.0-1.0); MONOCYTES % (AUTO) 1.6 % (1.7-9.3); NEUTROPHILS # (AUTO) 3.9 K/uL (1.8-7.7); NEUTROPHILS % (AUTO) 91.5 % (40.0-70.0); PLATELET COUNT (AUTO) 283 K/uL (130-430); RED CELL DISTRIBUTION WIDTH 17.6 % (9.0-15.0); WHITE BLOOD COUNT (AUTO) 4.2 K/uL (4.8-10.8)
[2022-01-22 08:00] VITALS: BP_SYST 138
[2022-01-22 08:33] LABS: ALBUMIN 3.5 g/dL (3.4-4.8); CALCIUM 9.5 mg/dL (8.4-11.0); CREATININE 0.9 mg/dL (0.55-1.30); POTASSIUM 4.7 mmol/L (3.5-5.1); TOTAL BILIRUBIN 0.5 mg/dL (0.0-1.0)
[2022-01-22] MEDS ORDERED: VALSARTAN 80 MG TABLET (DIOVAN) PO SCH (09:00)
[2022-01-22] MEDS ORDERED: FLUTICASONE/VILANTEROL 1 EACH BLST.W.DEV INH SCH (09:00)
[2022-01-22] MEDS: ASPIRIN 81 MG TAB.CHEW PO SCH (09:10)
[2022-01-22] MEDS: LOSARTAN POTASSIUM 50 MG TABLET (COZAAR) PO SCH (09:11)
[2022-01-22] MEDS: FUROSEMIDE 40 MG TABLET PO SCH (09:11)
[2022-01-22] MEDS: POTASSIUM CHLORIDE 10 MEQ TAB.PRT.SR PO SCH (09:11)
[2022-01-22] MEDS ORDERED: FUROSEMIDE 40 MG TABLET ONE (09:14)
[2022-01-22] MEDS ORDERED: LOSARTAN POTASSIUM 50 MG TABLET (COZAAR) ONE (09:14)
[2022-01-22] MEDS ORDERED: POTASSIUM CHLORIDE 10 MEQ TAB.PRT.SR ONE (09:15)
[2022-01-22] MEDS: THIAMINE HCL 100 MG TABLET PO SCH (09:41)
[2022-01-22] MEDS: SILDENAFIL CITRATE 20 MG TABLET PO SCH ×3 (09:41→23:19)
[2022-01-22 12:00] VITALS: BP_SYST 131
[2022-01-22] MEDS: LORazepam 2 MG/ML VIAL IVP PRN ×2 (15:52→23:23)
[2022-01-22 16:00] VITALS: BP_SYST 128
[2022-01-22] MEDS: AZITHROMYCIN 500 MG in NS 250 ML IV SCH (16:31)
[2022-01-22 20:20] VITALS: BP_SYST 114
[2022-01-23 00:21] VITALS: BP_SYST 126
[2022-01-23] MEDS: ALBUTEROL SULFATE 0.083% 2.5 MG/3 ML VIAL.NEB INH SCH ×4 (01:48→20:08)
[2022-01-23] MEDS: IPRATROPIUM BROM 0.5 MG/2.5 ML VIAL.NEB (ATROVENT) INH SCH ×4 (01:48→20:08)
[2022-01-23] MEDS: methylPREDNISolone SOD SUCC/PF 62.5 MG/ML VIAL IVP SCH (05:50)
[2022-01-23] MEDS: LORazepam 2 MG/ML VIAL IVP PRN ×3 (05:51→20:32)
[2022-01-23] MEDS: MORPHINE 2 MG/ML INJ. SYRINGE IVP PRN ×2 (05:52→20:32)
[2022-01-23] MEDS: BUDESONIDE 0.5 MG/2 ML AMPUL.NEB INH SCH ×2 (07:38→20:09)
[2022-01-23 08:00] VITALS: BP_SYST 135
[2022-01-23 08:09] LABS: ALBUMIN 3.1 g/dL (3.4-4.8); CALCIUM 9.1 mg/dL (8.4-11.0); CREATININE 0.74 mg/dL (0.55-1.30); POTASSIUM 3.9 mmol/L (3.5-5.1); TOTAL BILIRUBIN 0.5 mg/dL (0.0-1.0)
[2022-01-23] MEDS: THIAMINE HCL 100 MG TABLET PO SCH (09:36)
[2022-01-23] MEDS: ASPIRIN 81 MG TAB.CHEW PO SCH (09:36)
[2022-01-23] MEDS: POTASSIUM CHLORIDE 10 MEQ TAB.PRT.SR PO SCH (09:36)
[2022-01-23] MEDS: LOSARTAN POTASSIUM 50 MG TABLET (COZAAR) PO SCH (09:38)
[2022-01-23] MEDS: FUROSEMIDE 40 MG TABLET PO SCH (09:39)
[2022-01-23 10:02] LABS: THYROID STIMULATING HORMONE 0.53 uIu/mL (0.36-3.74)
[2022-01-23 10:07] VITALS: BP_SYST 130
[2022-01-23] MEDS: SILDENAFIL CITRATE 20 MG TABLET PO SCH ×2 (10:29→15:46)
[2022-01-23 12:00] VITALS: BP_SYST 112
[2022-01-23] MEDS ORDERED: PRED10TA PO (12:41)
[2022-01-23 16:00] VITALS: BP_SYST 135
[2022-01-23] MEDS: AZITHROMYCIN 500 MG in NS 250 ML IV SCH (17:40)
[2022-01-23 20:24] VITALS: BP_SYST 130
[2022-01-23] MEDS: predniSONE 20 MG TABLET PO SCH (20:32)
[2022-01-24] MEDS: SILDENAFIL CITRATE 20 MG TABLET PO SCH ×3 (00:12→15:20)
[2022-01-24 00:20] VITALS: BP_SYST 118
[2022-01-24] MEDS: IPRATROPIUM BROM 0.5 MG/2.5 ML VIAL.NEB (ATROVENT) INH SCH ×3 (01:06→13:12)
[2022-01-24] MEDS: ALBUTEROL SULFATE 0.083% 2.5 MG/3 ML VIAL.NEB INH SCH ×3 (01:06→13:12)
[2022-01-24] MEDS: LORazepam 2 MG/ML VIAL IVP PRN ×2 (01:38→15:20)
[2022-01-24] MEDS: MORPHINE 2 MG/ML INJ. SYRINGE IVP PRN (02:25)
[2022-01-24] MEDS: BUDESONIDE 0.5 MG/2 ML AMPUL.NEB INH SCH (07:54)
[2022-01-24 08:57] VITALS: BP_SYST 133
[2022-01-24] MEDS: ASPIRIN 81 MG TAB.CHEW PO SCH (09:49)
[2022-01-24] MEDS: FUROSEMIDE 40 MG TABLET PO SCH (09:49)
[2022-01-24] MEDS: THIAMINE HCL 100 MG TABLET PO SCH (09:49)
[2022-01-24] MEDS: LOSARTAN POTASSIUM 50 MG TABLET (COZAAR) PO SCH (09:50)
[2022-01-24] MEDS: POTASSIUM CHLORIDE 10 MEQ TAB.PRT.SR PO SCH (09:53)
[2022-01-24] MEDS: predniSONE 20 MG TABLET PO SCH (09:53)
[2022-01-24 10:47] VITALS: BP_SYST 133
[2022-01-24 12:28] VITALS: BP_SYST 143
[2022-01-24 15:45] VITALS: BP_SYST 143
== END 2022-01-24 17:00 | disposition home health service (06) | DRG 280 ==
LOC: SED 10:53 → STU 14:57
PROVIDERS: ADMIT Internal Medicine Hospice and Palliative Medicine; ATTEND Internal Medicine Hospice and Palliative Medicine
DX: I27.20 Pulmonary hypertension, unspecified (principal); I21.A1 Myocardial infarction type 2; J96.21 Acute and chronic respiratory failure with hypoxia; J45.901 Unspecified asthma with (acute) exacerbation; Z68.41 Body mass index [BMI] 40.0-44.9, adult; E66.01 Morbid (severe) obesity due to excess calories; Z98.891 History of uterine scar from previous surgery; Z20.822 Contact with and (suspected) exposure to COVID-19; F10.20 Alcohol dependence, uncomplicated; I10 Essential (primary) hypertension; K21.9 Gastro-esophageal reflux disease without esophagitis; G47.33 Obstructive sleep apnea (adult) (pediatric); J44.9 Chronic obstructive pulmonary disease, unspecified; Z79.82 Long term (current) use of aspirin; Z79.899 Other long term (current) drug therapy; I25.2 Old myocardial infarction; Z88.0 Allergy status to penicillin; Z82.49 Family history of ischemic heart disease and other diseases of the circulatory system
CPT/HCPCS: 36415; 71045; 71275; 76376; 80053; 80061; 83880; 84443; 84484; 85025; 93005; 93306; 94640; 94760; 96374; 96375; 99291; G0378; J0456; J1885; J2060; J2270; J2405; J2930; J7050; J7512; J7613; J7626; Q9967

== ENCOUNTER 2022-06-25 08:55 | Inpatient (IN) | payer OTHER ==
[~2022-06-25] VITALS: Ht 170.2 cm; Wt 142.7 kg
[~2022-06-25 08:55] MED LIST changes: +PRED10TA PO
[2022-06-25 09:00] VITALS: BP_SYST 144
--- NOTE | 2022-06-25 09:10 | NUR ---
Patient to ER bed 2 to gown for evaluation. Side rails up. Report given to CECILIO BENNETT.
[2022-06-25] MEDS ORDERED: DOCU-144 PO (09:37)
[2022-06-25] MEDS ORDERED: CETI-354 PO (09:37)
[2022-06-25] MEDS ORDERED: FLUT1DIS5 IH (09:37)
[2022-06-25] MEDS ORDERED: OMEP20CA15 PO (09:37)
[2022-06-25] MEDS ORDERED: SELE200T33 PO (09:38)
--- NOTE | 2022-06-25 09:50 | NUR ---
PT DRIVEN TO ER BY MOTHER, SHE PRESENTED TO ER WITH ABDOMINAL PAIN 06/09. PT HAS A HX OF PULMONARY HTN, OX SAT IS WITHIN NORMAL RANGE. PT IS IN BED WITH BED LOWERED LOCKED, RAILS UP, PT IS ON MONITOR MACHINE. WILL CONTINUE TO MONITOR. ADV DR BERNAL PT IS REQUESTING PAIN MEDS. WAITING FOR HIS RESP/ORDERS
[2022-06-25 10:16] LABS: BASOPHILS # (AUTO) 0.1 K/uL (0.0-0.2); BASOPHILS % (AUTO) 0.9 % (0.0-2.0); EOSINOPHILS # (AUTO) 0.1 K/uL (0.0-0.4); EOSINOPHILS % (AUTO) 1.1 % (0.0-4.0); HEMATOCRIT 32.5 % (36-48); HEMOGLOBIN 10.8 g/dL (12.0-16.0); LYMPHOCYTES # (AUTO) 1.2 K/uL (1.0-5.5); LYMPHOCYTES % (AUTO) 17.5 % (20.5-51.5); MEAN CORPUSCULAR HEMOGLOBIN 27 pg (27-31); MEAN CORPUSCULAR HGB CONC 33 % (32-36); MEAN CORPUSCULAR VOLUME 82 fL (79.0-98.0); MONOCYTES # (AUTO) 0.5 K/uL (0.0-1.0); MONOCYTES % (AUTO) 7.2 % (1.7-9.3); NEUTROPHILS # (AUTO) 4.9 K/uL (1.8-7.7); NEUTROPHILS % (AUTO) 73.3 % (40.0-70.0); PLATELET COUNT (AUTO) 341 K/uL (130-430); RED BLOOD CELL COUNT(AUTO) 3.98 MIL/uL (4.2-6.2); RED CELL DISTRIBUTION WIDTH 18.4 % (9.0-15.0); WHITE BLOOD COUNT (AUTO) 6.7 K/uL (4.8-10.8)
[2022-06-25 10:20] LABS: ANION GAP 9 (5-15); CALCIUM 8.7 mg/dL (8.4-11.0); CHLORIDE 101 mmol/L (98-107); CREATININE 0.92 mg/dL (0.55-1.30); GLUCOSE 90 mg/dL (70-99); POTASSIUM 3.7 mmol/L (3.5-5.1); UREA NITROGEN, BLOOD 8 mg/dL (8-21)
[2022-06-25 10:21] LABS: GFR AFRICAN AMERICAN 84 mL/min (>90)
[2022-06-25 10:28] LABS: ALANINE AMINOTRANSFERASE 25 U/L (12-78); ALBUMIN 3.2 g/dL (3.4-4.8); ASPARTATE AMINOTRANSFERASE 28 U/L (10-37); TOTAL BILIRUBIN 0.2 mg/dL (0.0-1.0)
[2022-06-25] MEDS ORDERED: MAG HYDROX/AL HYDROX/SIMETH 30 ML, LIDOCAINE VISCOUS 2% 15ML (PO) 15 ML, DICYCLOMINE HC... PO ONE ×3 (11:15)
[2022-06-25] MEDS ORDERED: PANTOPRAZOLE SODIUM 40 MG/VIAL (PROTONIX) IVP ONE (11:15)
[2022-06-25 11:30] LABS: ALCOHOL, BLOOD 64 mg/dL (<10); LIPASE 144 U/L (73-393)
[2022-06-25] MEDS ORDERED: chlordiazePOXIDE HCL 25 MG CAPSULE PO ONE (12:30)
[2022-06-25] MEDS ORDERED: LORazepam 2 MG/ML VIAL IVP ONE (12:30)
[2022-06-25] MEDS ORDERED: MORPHINE 4 MG INJ. 4 MG/ML VIAL IVP ONE (12:30)
[2022-06-25 13:01] LABS: BILIRUBIN,URINE NEGATIVE (NEGATIVE); BLOOD, URINE 3+ (NEGATIVE); CLARITY/URINE CLOUDY (CLEAR); COLOR,URINE RED (YELLOW); GLUCOSE,URINE NEGATIVE (NEGATIVE); KETONES,URINE 1+ (NEGATIVE); LEUKOCYTE ESTERASE ,URINE 1+ (NEGATIVE); NITRITE, URINE POSITIVE (NEGATIVE); PH,URINE 6.5 (5.0-8.0); PROTEIN URINE 3+ (NEGATIVE)
[2022-06-25 13:10] LABS: BACTERIA,URINE FEW /HPF (None Seen); MUCUS,URINE 1+ /LPF (None Seen); RBC,URINE >100 /HPF (0-3)
[2022-06-25 13:24] LABS: BARBITURATE, URINE NEGATIVE (NEG <=200); BENZODIAZEPINE, URINE POSITIVE (NEG <=150); CANNABINOID, URINE NEGATIVE (NEG <=50); COCAINE, URINE NEGATIVE (NEG <=150); METHAMPHETAMINES SCREEN,URINE NEGATIVE (NEG <=500); OPIATE, URINE NEGATIVE (NEG <=100); PHENCYCLIDINE SCREEN,URINE NEGATIVE (NEG <=25); UR TRICYCLIC ANTIDEPRESSANTS NEGATIVE (NEG <=300); URINE AMPHETAMINE NEGATIVE (NEG <=500); URINE METHADONE NEGATIVE (NEG <=200); URINE OXYCODONE SCREEN NEGATIVE (NEG <=100); URINE PROPOXYPHENE SCREEN NEGATIVE (NEG <=300)
[2022-06-25] MEDS ORDERED: LORazepam 2 MG/ML VIAL ONE (13:26)
--- NOTE | 2022-06-25 15:36 | NUR ---
CONSULTATION PAGED REASON FOR CONSULTATION:TROPONIN WAS CONSULT CALLED?Y -PERSON WHO WAS NOTIFIED:EXCHANGE CONSULTING PHYSICIAN:BARBI WILKERSON SUPERVISOR REMELT SPECIALTY:CARDIO SUPERVISOR REMELT PHONE NUMBER:[phone] REQUESTING PHYSICIAN:RENU HOLLOWAY
--- NOTE | 2022-06-25 15:40 | NUR ---
ADMISSION: The patient, DAKOTA CHANDRA, 47 y/o, F admitted by RENU ARANDA MD, was given written information regarding hospital policies, unit procedures and contact persons. Valuables were checked and patients own medication taken to pharmacy. obtained VS.
[2022-06-25 15:46] VITALS: BP_SYST 133
--- NOTE | 2022-06-25 15:50 | NUR ---
CONSULTATION PAGED REASON FOR CONSULTATION:SOB WAS CONSULT CALLED?Y -PERSON WHO WAS NOTIFIED:YUMIKO CONSULTING PHYSICIAN:KEISHA FRIEDMAN CANAL BOAT CAPTAIN SPECIALTY:PULMONARY CANAL BOAT CAPTAIN PHONE NUMBER:[phone] REQUESTING PHYSICIAN:RENU HOLLOWAY
[2022-06-25 19:00] VITALS: BP_SYST 135
--- NOTE | 2022-06-25 19:15 | NUR ---
change of shift.pt.presents quiescent affect;calm,resting.o2 therapy administered via nasal cannulae;rate: 2l/min. no c/o pain,nausea.pt.capable to ambulate w/out assistance.call light/telephone w/in access of the pt.
--- NOTE | 2022-06-25 19:37 | NUR ---
CLOSING NOTE PROVIDED SBAR TO NIGHT RN PT IN BED RESPIRATIONS EVEN,REGUALR, AND NON-LABORED. PT IS LOW AND LOCKED. CALL LIGHT WITHIN REACH ENDORSED HIGHWAY PAINTER NURSE TO FINISH INVENTORY CHECK LISTS. ENDORSED CARE
[2022-06-25 20:00] VITALS: BP_SYST 135
--- NOTE | 2022-06-25 20:00 | NUR ---
pt.assessed.v/s assessed values wnl.no c/o pain,nausea.pt.apprised that snacks/beverages are available w/in the shift. no requests posited@this hour.02-sat%=96%.pt.capable to reposition self.call light/telephone w/in access of the pt.
[2022-06-25] MEDS ORDERED: ACETAMINOPHEN 325 MG TABLET PO PRN (20:45)
[2022-06-25] MEDS ORDERED: TEMAZEPAM 7.5 MG CAPSULE PO PRN (20:45)
--- NOTE | 2022-06-25 21:00 | NUR ---
2100p medications administered.pt.had c/o nausea. paged apprised of the pt's status. ordered zofran; 4mg ivp q-4hrs/p;zofran administered.to assess the efficacy of the medication per protocol.pt.requested ice water provided.
[2022-06-25] MEDS: DOCUSATE SODIUM 100 MG CAPSULE PO SCH (21:20)
[2022-06-25] MEDS: SILDENAFIL CITRATE 20 MG TABLET PO SCH (21:21)
[2022-06-25] MEDS: ONDANSETRON HCL 4 MG/2 ML VIAL IVP PRN (21:21)
--- NOTE | 2022-06-25 22:00 | NUR ---
pt.assessed.pt.quiescent,somnolent.per flacc pain mgx pt.absent facial grimaces/body posturing.pt.capable to reposition self.call light/telephone w/in access of the pt.
[2022-06-25] MEDS: ALBUTEROL SULFATE 0.083% 2.5 MG/3 ML VIAL.NEB INH SCH (22:02)
[2022-06-25] MEDS: BUDESONIDE 0.5 MG/2 ML AMPUL.NEB INH SCH (22:02)
[2022-06-25 23:38] VITALS: BP_SYST 133
[2022-06-26] VITALS: BP_SYST 132
--- NOTE | 2022-06-26 | NUR ---
pt.assessed.v/s assessed.no c/o pain,nausea.no requests posited@this hour.call light/telephone w/in access of the pt.
[2022-06-26] MEDS: ALBUTEROL SULFATE 0.083% 2.5 MG/3 ML VIAL.NEB INH SCH ×4 (01:00→19:48)
[2022-06-26] MEDS: ONDANSETRON HCL 4 MG/2 ML VIAL IVP PRN ×4 (01:48→20:37)
--- NOTE | 2022-06-26 02:00 | NUR ---
pt.assessed.pt.quiescent;somnolent.per flacc pain mgx pt.absent facial grimaces/body posturing.pt.capable to reposition self.call light/telephone w/in access of the pt.
--- NOTE | 2022-06-26 04:00 | NUR ---
pt.assessed.pt.quiescent;somnolent.per flacc pain mgx pt.absent facial grimaces/body posturing.pt.capable to reposition self. call light/telephone w/in access of the pt.
--- NOTE | 2022-06-26 06:15 | NUR ---
pt.assessed.pt.quiescent,somnolent.per flacc pain mgx pt.absent facial grimaces/body posturing.pt.capable to reposition self. call light/telephone w/in access of the pt.
--- NOTE | 2022-06-26 07:15 | NUR ---
OPENING NOTE Patient in bed resting with eyes closed, asleep; no sign of pain or distress. Breathing is nonlabored and even. All needs met at this time and safety checks made.
[2022-06-26 07:29] LABS: CALCIUM 8.7 mg/dL (8.4-11.0); CREATININE 0.98 mg/dL (0.55-1.30); POTASSIUM 3.2 mmol/L (3.5-5.1)
[2022-06-26] MEDS: BUDESONIDE 0.5 MG/2 ML AMPUL.NEB INH SCH ×2 (07:29→19:48)
[2022-06-26 08:00] VITALS: BP_SYST 134
[2022-06-26] MEDS: DOCUSATE SODIUM 100 MG CAPSULE PO SCH ×2 (08:36→20:36)
[2022-06-26] MEDS: ASPIRIN 81 MG TAB.CHEW PO SCH (08:36)
[2022-06-26] MEDS: LORATADINE 10 MG TABLET PO SCH (08:37)
[2022-06-26] MEDS: LOSARTAN POTASSIUM 50 MG TABLET (COZAAR) PO SCH (08:37)
[2022-06-26] MEDS: SILDENAFIL CITRATE 20 MG TABLET PO SCH ×3 (08:38→20:36)
[2022-06-26] MEDS: PANTOPRAZOLE SODIUM 40 MG TAB PO SCH (08:38)
[2022-06-26] MEDS ORDERED: VALSARTAN 80 MG TABLET (DIOVAN) PO SCH (09:00)
[2022-06-26] MEDS ORDERED: FLUTICASONE 500 mCg/SALMETEROL 50 mCg DISKUS W.DEV IH SCH (09:00)
[2022-06-26] MEDS ORDERED: FUROSEMIDE 40 MG TABLET PO SCH (09:00)
[2022-06-26] MEDS ORDERED: OMEPRAZOLE Non-Formulary 20 MG CAPSULE.DR PO SCH (09:00)
[2022-06-26 12:00] VITALS: BP_SYST 111
[2022-06-26] MEDS ORDERED: POTASSIUM CHLORIDE 40 MEQ in NS 250 ML IV ONE (13:00)
--- NOTE | 2022-06-26 13:39 | NUR ---
PATIENT LEFT FOR PV SCAN Patient left for scan in stable condition.
[2022-06-26] MEDS: UPTRAVI PO SCH ×2 (13:55→20:36)
--- NOTE | 2022-06-26 14:30 | NUR ---
PATIENT RETURNED FROM SCAN Patient back in her room, tele monitor resumed and IV fluids started. All needs met at this time and safety checks made.
--- NOTE | 2022-06-26 15:17 | NUR ---
NEW IV Previous IV on left forearm infiltrated, removed intact and no active bleeding. New IV placed on the right hand. Patient tolerated well.
[2022-06-26 16:00] VITALS: BP_SYST 137
[2022-06-26] MEDS: FUROSEMIDE 40 MG/4 ML VIAL IVP SCH (18:24)
--- NOTE | 2022-06-26 18:37 | NUR ---
PAGED Paged Dr Yee, industrial gas production operator for Dr Vega. Patient is experiencing nausea and dry heaving despite zofran and comfort measures.
--- NOTE | 2022-06-26 19:30 | NUR ---
CLOSING NOTE Patient sitting up at the side of the bed, nauseus and dry heaving. Patient aware of when her next antiemetic medication is available, MD paged for additional orders. Patient's mother is at bedside and both patient and family have been updated on the plan of care. Nasal cannula is in place, 3L, oxygen saturation 94%. Patient has been able to ambulate to the restroom with steady gait throughout the shift. All needs met at this time and safety checks made. Endorsed to date night sitter nurse.
--- NOTE | 2022-06-26 19:56 | NUR ---
TELE SR 95
[2022-06-26 20:00] VITALS: BP_SYST 119
--- NOTE | 2022-06-26 20:00 | NUR ---
HANDOFF REPORT RECEIVED FROM GELY BENNETT. PT AWAKE IN BED ON 3L O2/NC EATING DINNER. NO SIGNS OR SYMPTOMS OF RESPIRATORY DISTRESS. REPORTED BIPAP TO BE REPLACED AFTER EATING. CONFIRMED WITH RT. PT DENIES PAIN.
--- NOTE | 2022-06-26 20:00 | NUR ---
CORRECTION: SON OF ROOMMATE AT THE BEDSIDE.
[2022-06-26] MEDS ORDERED: METOCLOPRAMIDE HCL 10 MG/2 ML VIAL IVP ONE (20:45)
[2022-06-26 20:55] VITALS: BP_SYST 112
[2022-06-27] VITALS (7 sets, daily range): BP systolic 114–134
[2022-06-27] MEDS: ALBUTEROL SULFATE 0.083% 2.5 MG/3 ML VIAL.NEB INH SCH ×3 (01:00→13:28)
[2022-06-27] MEDS: FUROSEMIDE 40 MG/4 ML VIAL IVP SCH (06:45)
--- NOTE | 2022-06-27 07:30 | NUR ---
HANDOFF REPORT TO AM NURSE. PT AWAKE IN BED ANTICIPATING BREAKFAST RT REMOVED BIPAP. PT TOLERATED WELL LAST NOC OVERALL WITH FEW RESTLESS EPISODES. O2 SATS MAINTAINED THRU OUT NOC 95-96%.RELINQUISHED CARE OF PT AT THIS TIME.
--- NOTE | 2022-06-27 07:30 | NUR ---
AM BLOOD SUGAR BEFORE BREAKFAST 119. NO COVERAGE PER S/S
[2022-06-27] MEDS: BUDESONIDE 0.5 MG/2 ML AMPUL.NEB INH SCH (07:31)
[2022-06-27 08:14] LABS: ALBUMIN 3.2 g/dL (3.4-4.8); CALCIUM 8.7 mg/dL (8.4-11.0); CREATININE 1.04 mg/dL (0.55-1.30); POTASSIUM 3.6 mmol/L (3.5-5.1); TOTAL BILIRUBIN 0.4 mg/dL (0.0-1.0)
[2022-06-27] MEDS: UPTRAVI PO SCH (09:00)
[2022-06-27] MEDS: PANTOPRAZOLE SODIUM 40 MG TAB PO SCH (10:29)
[2022-06-27] MEDS: LORATADINE 10 MG TABLET PO SCH (10:45)
[2022-06-27] MEDS: DOCUSATE SODIUM 100 MG CAPSULE PO SCH (10:45)
[2022-06-27] MEDS: LOSARTAN POTASSIUM 50 MG TABLET (COZAAR) PO SCH (10:45)
[2022-06-27] MEDS: ASPIRIN 81 MG TAB.CHEW PO SCH (10:45)
[2022-06-27] MEDS: SILDENAFIL CITRATE 20 MG TABLET PO SCH ×2 (10:45→15:22)
[2022-06-27] MEDS: ONDANSETRON HCL 4 MG/2 ML VIAL IVP PRN (10:45)
[2022-06-27] MEDS ORDERED: FURO-149 PO (14:08)
--- NOTE | 2022-06-27 14:09 | NUR ---
CARDIO MD DR ANTON WAS CALLED, RE: APPROVAL FOR DISCHARGE. SPOKE TO STEFFANY
--- NOTE | 2022-06-27 16:15 | NUR ---
AAOX4 NAD NOTED. PT AMBULATORY. DISCHARGE EDUCATION PROVIDED. PT VERBALIZED UNDERSTANDING OF TEACHINGS. PT HOME O2 AT BEDSIDE. PIV DISCONTINUED. NO REDNESS OR BLEEDING NOTED. PT ESCORTED TO PRIVATE VEHICLE VIA WHEELCHAIR WITHOUT INCIDENT.
[2022-06-28] MEDS ORDERED: FUROSEMIDE 40 MG TABLET PO SCH (09:00)
== END 2022-06-27 16:20 | disposition home or self-care (01) | DRG 314 ==
LOC: SED 08:55 → STU 12:13
PROVIDERS: ADMIT Specialist; ATTEND Specialist
PROC: 5A09357 Assistance with Respiratory Ventilation, Less than 24 Consecutive Hours, Continuous Positive Airway Pressure (ICD-10-PCS; principal; 2022-06-27)
DX: I27.0 Primary pulmonary hypertension (principal); I50.33 Acute on chronic diastolic (congestive) heart failure; J96.21 Acute and chronic respiratory failure with hypoxia; I24.8 Other forms of acute ischemic heart disease; Z68.42 Body mass index [BMI] 45.0-49.9, adult; I11.0 Hypertensive heart disease with heart failure; E66.01 Morbid (severe) obesity due to excess calories; Z20.822 Contact with and (suspected) exposure to COVID-19; J45.909 Unspecified asthma, uncomplicated; K21.9 Gastro-esophageal reflux disease without esophagitis; E87.6 Hypokalemia; J44.9 Chronic obstructive pulmonary disease, unspecified; I50.9 Heart failure, unspecified; Z88.0 Allergy status to penicillin; Z79.899 Other long term (current) drug therapy; Z79.82 Long term (current) use of aspirin; I25.2 Old myocardial infarction
CPT/HCPCS: 36415; 36600; 71045; 78579; 78580-TC; 80048; 80053; 80307; 81000; 82803-TC; 83690; 83880; 84484; 85025; 85379; 87086; 93005; 93306; 93971; 94640; 94660; 94760; 96374; 96375; 99285; A9539; A9540; C9113; G0378; G0482; J1940; J2001; J2060; J2405; J2765; J3480; J7050; J7613; J7626

== ENCOUNTER 2022-09-01 13:48 | Inpatient (IN) | payer OTHER ==
[~2022-09-01] VITALS: Ht 170.2 cm; Wt 114.8 kg
[2022-09-01 13:48] VITALS: BP_SYST 149
[~2022-09-01 13:48] MED LIST changes: +CETI-354 PO; +DOCU-144 PO; +FLUT1DIS5 IH; +OMEP20CA15 PO; +SELE200T33 PO
--- NOTE | 2022-09-01 13:51 | NUR ---
Placed in room 01 . Placed on registered nurse cardiac, blood pressure machine and pulse oximeter. To gown for exam. Side rails up. Report given to Abdiel BENNETT .
--- NOTE | 2022-09-01 13:53 | NUR ---
Pt brought by ALS from home, A&Ox4, pt presents to ER with SOB and O2 60% at home, pt states she has Hx of pulmonary hypertension, pt placed on NRB mask 8L by EMS , O2 94% upon arrival, skin pink and warm, chest retractions noted, afebrile, will continue to monitor
--- NOTE | 2022-09-01 13:55 | NUR ---
Dr Grimes evaluating patient at bedside
--- NOTE | 2022-09-01 13:58 | NUR ---
RT at bedside
--- NOTE | 2022-09-01 13:59 | NUR ---
Covid swab sent to the lab
--- NOTE | 2022-09-01 14:00 | NUR ---
ASSUMED PATIENT CARE AAOX4 SPEECH CLEAR AND COHERENT BIBA FOR SOB ASSOCIATED WITH HX OF PULMONARY HTN, ON CLINICAL SOCIAL WORKER ON SIMPLE MASK. WILL CONTINUE TO MONITOR.
--- NOTE | 2022-09-01 14:19 | NUR ---
PATIENT RECEIVED BREATHING TREATMENT, REMAINS ON O2 WILL CONTINUE TO MONITOR
--- NOTE | 2022-09-01 14:22 | NUR ---
PATIENT ASSISTED TO BEDSIDE COMMODE.
[2022-09-01] MEDS ORDERED: FUROSEMIDE 40 MG/4 ML VIAL IVP ONE (14:30)
--- NOTE | 2022-09-01 15:02 | NUR ---
REPORT RECEIVED FROM SABRINA METZ. PATIENT AOX 4 VSS. PATIENT ON 10L SIMPLE MASK SATURATING AT 94%.
[2022-09-01] MEDS ORDERED: SPIR25TA PO (15:21)
[2022-09-01] MEDS ORDERED: MACI10TA PO (15:21)
[2022-09-01] MEDS ORDERED: FERR250T2 PO (15:21)
--- NOTE | 2022-09-01 15:30 | NUR ---
Medication reconciliation completed with information provided by bottles pt brought in. Any prior medication reconciliation on file was reviewed and corrected.
[2022-09-01 16:01] LABS: BASOPHILS # (AUTO) 0.1 K/uL (0.0-0.2); BASOPHILS % (AUTO) 1.1 % (0.0-2.0); EOSINOPHILS # (AUTO) 0.1 K/uL (0.0-0.4); EOSINOPHILS % (AUTO) 2.4 % (0.0-4.0); HEMATOCRIT 30.1 % (36-48); HEMOGLOBIN 9.8 g/dL (12.0-16.0); LYMPHOCYTES # (AUTO) 1.1 K/uL (1.0-5.5); LYMPHOCYTES % (AUTO) 19.3 % (20.5-51.5); MEAN CORPUSCULAR HEMOGLOBIN 26 pg (27-31); MEAN CORPUSCULAR HGB CONC 33 % (32-36); MEAN CORPUSCULAR VOLUME 81 fL (79.0-98.0); MONOCYTES # (AUTO) 0.5 K/uL (0.0-1.0); MONOCYTES % (AUTO) 8.1 % (1.7-9.3); NEUTROPHILS % (AUTO) 69.1 % (40.0-70.0); PLATELET COUNT (AUTO) 319 K/uL (130-430); RED BLOOD CELL COUNT(AUTO) 3.73 MIL/uL (4.2-6.2); RED CELL DISTRIBUTION WIDTH 21.1 % (9.0-15.0); WHITE BLOOD COUNT (AUTO) 5.8 K/uL (4.8-10.8)
[2022-09-01 16:13] LABS: ANION GAP 10 (5-15); CALCIUM 8.8 mg/dL (8.4-11.0); CHLORIDE 104 mmol/L (98-107); CREATININE 1.27 mg/dL (0.55-1.30); GLUCOSE 98 mg/dL (70-99); UREA NITROGEN, BLOOD 11 mg/dL (8-21)
[2022-09-01 16:15] LABS: GFR AFRICAN AMERICAN 58 mL/min (>90)
[2022-09-01 16:21] LABS: ALANINE AMINOTRANSFERASE 44 U/L (12-78); ALBUMIN 3.4 g/dL (3.4-4.8); ASPARTATE AMINOTRANSFERASE 64 U/L (10-37); TOTAL BILIRUBIN 0.1 mg/dL (0.0-1.0)
[2022-09-01 16:25] LABS: BILIRUBIN,URINE NEGATIVE (NEGATIVE); BLOOD, URINE NEGATIVE (NEGATIVE); CLARITY/URINE CLEAR (CLEAR); GLUCOSE,URINE NEGATIVE (NEGATIVE); KETONES,URINE NEGATIVE (NEGATIVE); LEUKOCYTE ESTERASE ,URINE NEGATIVE (NEGATIVE); NITRITE, URINE NEGATIVE (NEGATIVE); PH,URINE 5.5 (5.0-8.0); PROTEIN URINE NEGATIVE (NEGATIVE); UROBILINOGEN,URINE 0.2 (0.2-1.0)
[2022-09-01 16:39] LABS: COLOR,URINE STRAW (YELLOW)
[2022-09-01] MEDS ORDERED: KETOROLAC TROMETHAMINE 30 MG VIAL IVP ONE (16:45)
--- NOTE | 2022-09-01 17:33 | NUR ---
Admit bed requested Patient will be admitted to care of . Admitted to ICU unit. Diagnosis CHF Inpatient (Yes or No) Y Observation (Yes or No) N Orientation concerns or request close to nursing station (Yes or No) N Covid Status On vent or bipap Isolation requirements Needs a sitter N From Home (Yes or if No enter name of facility) Y Requires Dialysis (Yes or No) N Med Rec Completed (Yes of No) Y
--- NOTE | 2022-09-01 17:40 | NUR ---
ADMISSION NOTE Received patient from ER via gurney. Patient is awake, alert, oriented X 4. Patient oriented to hospital room, call light, toileting, pain management and safety-teach back done. Patient informed that Henri Tinajero RN will be the nurse and that their room number is ICU Bed 5. Personal belongings checked and Belongings List documented. Call light within reach.
[2022-09-01 18:00] VITALS: BP_SYST 133
--- NOTE | 2022-09-01 18:00 | NUR ---
Commode at bedside, call light in reach bed low and locked.
--- NOTE | 2022-09-01 18:00 | NUR ---
Patient home medications brought to Pharmacy for storage
--- NOTE | 2022-09-01 18:07 | NUR ---
Called Dr. Jerald Hough with a consult,spoke with Herlinda from the exchange
--- NOTE | 2022-09-01 18:10 | NUR ---
Dr. Potts made aware of admission, spoke with MD new orders obtained.
--- NOTE | 2022-09-01 18:59 | NUR ---
CRITICAL LAB: Laboratory called with critical lab value Troponin HS 251. Medical record number and patient name verified. Read back of values done. MD Marques paged, notified of value, pending return call.
[2022-09-01 19:00] VITALS: BP_SYST 106
--- NOTE | 2022-09-01 19:00 | NUR ---
Closing Note: Report given to incoming NOC RN, all cars endorsed.
[2022-09-01 20:00] VITALS: BP_SYST 118; BP_SYST 138
[2022-09-01] MEDS ORDERED: FUROSEMIDE 40 MG/4 ML VIAL IVP SCH (21:00)
[2022-09-01] MEDS ORDERED: COMMUNICATION ORDER XX ONE ×3 (21:30)
[2022-09-01] MEDS ORDERED: FLUTICASONE 500 mCg/SALMETEROL 50 mCg DISKUS W.DEV INH ONE (21:30)
[2022-09-01] MEDS ORDERED: SILDENAFIL CITRATE 20 MG TABLET PO ONE (21:45)
[2022-09-01] MEDS: FLUTICASONE 500 mCg/SALMETEROL 50 mCg DISKUS W.DEV INH SCH (22:18)
[2022-09-01] MEDS: UPTRAVI 1600 MCG PO SCH (22:22)
[2022-09-01] MEDS: LORazepam 1 MG TABLET PO PRN (22:24)
[2022-09-01 23:00] VITALS: BP_SYST 138
[2022-09-02] VITALS (14 sets, daily range): BP systolic 92–139
[2022-09-02] MEDS: FUROSEMIDE 40 MG/4 ML VIAL IVP SCH ×2 (05:57→05:59)
--- NOTE | 2022-09-02 07:15 | NUR ---
Opening Note: Report rc'vd from outgoing NOC RN, all cares assumed.
--- NOTE | 2022-09-02 07:20 | NUR ---
Patient is awake in bed with c/c Nausea, will page MD for orders.
--- NOTE | 2022-09-02 07:24 | NUR ---
Paged Dr. Yee for orders, pending return call.
--- NOTE | 2022-09-02 07:26 | NUR ---
Dr. Yee returned call, new order placed for Zofran 4mg Q6HRS IVP for Nausea and Vomiting. Orders transcribed.
[2022-09-02] MEDS ORDERED: ONDANSETRON 4 MG ODT TAB PO PRN (07:30)
--- NOTE | 2022-09-02 07:56 | NUR ---
MD Potts making rounds, bedside report given, MD to discuss plan of care.
[2022-09-02] MEDS ORDERED: ONDANSETRON HCL 4 MG/2 ML VIAL ONE (07:57)
[2022-09-02] MEDS: ONDANSETRON HCL 4 MG/2 ML VIAL IVP PRN ×3 (08:14→22:32)
[2022-09-02] MEDS: SILDENAFIL CITRATE 20 MG TABLET PO SCH ×3 (08:30→22:31)
[2022-09-02] MEDS: OPSUMIT 10 MG PO SCH (08:30)
[2022-09-02] MEDS: UPTRAVI 1600 MCG PO SCH ×2 (08:31→21:00)
[2022-09-02] MEDS: FLUTICASONE 500 mCg/SALMETEROL 50 mCg DISKUS W.DEV INH SCH ×2 (08:32→22:31)
[2022-09-02 08:34] LABS: BASOPHILS % (AUTO) 0.7 % (0.0-2.0); EOSINOPHILS # (AUTO) 0.1 K/uL (0.0-0.4); EOSINOPHILS % (AUTO) 2.8 % (0.0-4.0); HEMATOCRIT 31.8 % (36-48); HEMOGLOBIN 10.3 g/dL (12.0-16.0); LYMPHOCYTES # (AUTO) 0.9 K/uL (1.0-5.5); LYMPHOCYTES % (AUTO) 18.6 % (20.5-51.5); MEAN CORPUSCULAR HEMOGLOBIN 26 pg (27-31); MEAN CORPUSCULAR HGB CONC 32 % (32-36); MEAN CORPUSCULAR VOLUME 79 fL (79.0-98.0); MONOCYTES # (AUTO) 0.6 K/uL (0.0-1.0); MONOCYTES % (AUTO) 11.1 % (1.7-9.3); NEUTROPHILS # (AUTO) 3.3 K/uL (1.8-7.7); NEUTROPHILS % (AUTO) 66.8 % (40.0-70.0); PLATELET COUNT (AUTO) 328 K/uL (130-430); RED CELL DISTRIBUTION WIDTH 21.1 % (9.0-15.0)
[2022-09-02 08:49] LABS: CALCIUM 9.5 mg/dL (8.4-11.0); CREATININE 1.43 mg/dL (0.55-1.30)
[2022-09-02 08:54] LABS: ALBUMIN 3.6 g/dL (3.4-4.8); TOTAL BILIRUBIN 0.5 mg/dL (0.0-1.0)
[2022-09-02] MEDS ORDERED: FLUTICASONE 500 mCg/SALMETEROL 50 mCg DISKUS W.DEV INH SCH (09:00)
--- NOTE | 2022-09-02 09:43 | NUR ---
Dr. Marques making roundsMD at bedside discussing plan of care with patient.
--- NOTE | 2022-09-02 11:17 | NUR ---
MD DR SOUSA WENT TO EXAMINE THE PATIENT. NEW ORDERS RECEIVED TO DOWNGRADE HER STATUS.
--- NOTE | 2022-09-02 12:28 | NUR ---
Dietitian Recommendations * Regular, high-fiber diet * Adhere to pt food preferences * Consider Ensure Enlive if PO intakes remain suboptimal LP, MS, RD Please refer to Nutrition Assessment for details. Addendum: 09/02/22 at [address] Amended: Links added.
--- NOTE | 2022-09-02 12:53 | NUR ---
REPORT GIVEN TO SABRINA RICK. PT WILL BE TRANSFERRED TO TELEMETRY DEPT 112-B.
[2022-09-02] MEDS: ACETAMINOPHEN 325 MG TABLET PO PRN (13:44)
--- NOTE | 2022-09-02 14:00 | NUR ---
TO [facility] TRANSPORTED PT VIA WHEELCHAIR, ON O2 VIA NASAL CANNULA AT 4L TO ROOM 112-B, WITH HER PERSONAL BELONGINGS.
--- NOTE | 2022-09-02 14:45 | NUR ---
receive the patient form intensive care unit . with admitting diagnosis of chest pain aox4 no sign and symptoms of respiratory distress . no complain of pain at this time . will continue to monitor
[2022-09-02] MEDS ORDERED: SELE1600 PO (16:09)
[2022-09-02] MEDS ORDERED: FERR-69 PO (16:09)
--- NOTE | 2022-09-02 18:17 | NUR ---
will endorse to solution strategist rn for continuity of care
[2022-09-02] MEDS: LORazepam 1 MG TABLET PO PRN (18:28)
--- NOTE | 2022-09-02 19:40 | NUR ---
INITIAL NOTE AT INITIAL ASSESSMENT, PATIENT IS RESTING IN BED, STABLE, NO SIGNS OF RESPIRATORY DISTRESS. SHE VERBALIZES NO PAIN. PLAN OF CARE FOR THE EVENING IS COMMUNICATED WITH THE PATIENT. PATIENT IS TAUGHT HOW TO USE THE CALL LIGHT BUTTON, AND SHE DEMONSTRATES USAGE TEACH BACK CORRECTLY. CALL LIGHT PLACED WITHIN REACH. BEDSIDE COMMODE AND WALKER ARE AT BEDSIDE FOR EASY ACCESS. BED IS LOCKED, ALARMED, AND AT THE LOWEST LEVEL. FALL, SAFETY, RESPIRATORY, AND ASPIRATION PRECAUTIONS WILL BE TAKEN THROUGH THE SHIFT.
--- NOTE | 2022-09-02 22:30 | NUR ---
CPAP SET UP BY RT PATIENT STATES SHE IS READY FOR SLEEP, RT IS PAGED TO BEDSIDE TO SET UP PATIENT'S CPAP.
[2022-09-03] VITALS: BP_SYST 110
[2022-09-03] MEDS ORDERED: LORazepam 1 MG TABLET PO PRN (00:45)
[2022-09-03] MEDS ORDERED: BACLOFEN 10 MG TABLET PO PRN (00:45)
--- NOTE | 2022-09-03 00:49 | NUR ---
COMMUNICATION W/ DR. MERRY SOUSA PAGED BACK AT THIS TIME, IT WAS COMMUNICATED TO HIS THAT PATIENT IS NOW COMPLAINING OF MUSCLE SPASMS BELOW HER HIPS, SHE ALSO MENTIONED THAT PRN MEDICATION GIVEN TO HER FOR ANXIETY ONLY WORKED A SHORT AMOUNT OF TIME. GAVE NEW ORDERS. ALL ORDERS READ BACK AND VERIFIED.
--- NOTE | 2022-09-03 06:50 | NUR ---
CLOSING NOTE PATIENT WAS STABLE ON 4L NASAL CANNULA THEN ON CPAP THROUGHOUT THE NIGHT. SHE SLEPT WELL DURING THE NIGHT. AT THIS TIME, SHE IS RESTING IN BED, STABLE, NO SIGNS OF RESPIRATORY DISTRESS. CALL LIGHT PLACED WITHIN REACH. BED IS LOCKED, ALARMED, AND AT THE LOWEST LEVEL. FALL , SAFETY, AND RESPIRATORY PRECAUTIONS WILL BE IN PLACE THROUGHOUT THE SHIFT. WILL CONTINUE TO MONITOR UNTIL REPORT IS GIVEN AT BEDSIDE TO AM NURSE.
[2022-09-03 08:00] VITALS: BP_SYST 124
[2022-09-03] MEDS ORDERED: FUROSEMIDE 20 MG TABLET PO SCH (09:00)
[2022-09-03] MEDS: SILDENAFIL CITRATE 20 MG TABLET PO SCH (09:20)
[2022-09-03] MEDS: UPTRAVI 1600 MCG PO SCH (09:21)
[2022-09-03] MEDS: OPSUMIT 10 MG PO SCH (09:21)
[2022-09-03] MEDS: ACETAMINOPHEN 325 MG TABLET PO PRN (09:32)
[2022-09-03] MEDS: FLUTICASONE 500 mCg/SALMETEROL 50 mCg DISKUS W.DEV INH SCH (09:37)
[2022-09-03] MEDS: ONDANSETRON HCL 4 MG/2 ML VIAL IVP PRN (10:56)
--- NOTE | 2022-09-03 11:50 | NUR ---
MD DR ARANDA IN, AND WENT TO SEE THE PATIENT. DISCHARGE ORDERS RECEIVED.
[2022-09-03] MEDS ORDERED: FURO-150 PO (12:06)
[2022-09-03 12:55] VITALS: BP_SYST 131
--- NOTE | 2022-09-03 13:17 | NUR ---
DISCHARGE INSTRUCTIONS AND MEDICATIONS GIVEN BACK TO PATIENT. SALINE LOCK DISCONTINUED.
--- NOTE | 2022-09-03 13:55 | NUR ---
DISCHARGE WHEELED PT HOME. NIECE CAME IN TO DRIVE HER HOME.
== END 2022-09-03 13:55 | disposition home or self-care (01) | DRG 189 ==
LOC: SED 13:48 → SIC 17:15 → STU 09-02 12:36
PROVIDERS: ADMIT Internal Medicine; ATTEND Internal Medicine
PROC: 5A09357 Assistance with Respiratory Ventilation, Less than 24 Consecutive Hours, Continuous Positive Airway Pressure (ICD-10-PCS; principal; 2022-09-01)
DX: J96.21 Acute and chronic respiratory failure with hypoxia (principal); I13.0 Hypertensive heart and chronic kidney disease with heart failure and stage 1 through stage 4 chronic kidney disease, or unspecified chronic kidney disease; F19.20 Other psychoactive substance dependence, uncomplicated; I50.32 Chronic diastolic (congestive) heart failure; I27.20 Pulmonary hypertension, unspecified; E66.9 Obesity, unspecified; J84.10 Pulmonary fibrosis, unspecified; G47.33 Obstructive sleep apnea (adult) (pediatric); N18.31 Chronic kidney disease, stage 3a; E11.22 Type 2 diabetes mellitus with diabetic chronic kidney disease; Z20.822 Contact with and (suspected) exposure to COVID-19; Z88.0 Allergy status to penicillin; Z79.82 Long term (current) use of aspirin; Z79.899 Other long term (current) drug therapy; Z68.39 Body mass index [BMI] 39.0-39.9, adult
CPT/HCPCS: 36415; 71045; 80053; 81003; 83605; 83880; 84484; 85025; 87040; 87081; 87086; 93005; 94660; 94760; 96365; 96375; 99285; G0378; J1885; J1940; J1956; J2405; Q0162

== ENCOUNTER 2023-06-01 04:29 | Inpatient (IN) | payer OTHER ==
[~2023-06-01] VITALS: Ht 167.6 cm; Wt 116.3 kg
[2023-06-01] VITALS (10 sets, daily range): BP systolic 134–161; PULSE 95–109; RESP 22–32; TEMP 97.8–97.9; O2SAT 90–96
[~2023-06-01 04:29] MED LIST changes: -ASPI-1155 PO; -CETI-354 PO; +FERR-69 PO; -FLUT1BLS3 INH; -FURO-149 PO; +FURO-150 PO; +MACI10TA PO; -PRED10TA PO; +SELE1600 PO; -SELE200T33 PO; +SPIR25TA PO
[2023-06-01] MEDS ORDERED: IPRATROPIUM BROM 0.5 MG/2.5 ML VIAL.NEB (ATROVENT) INH ONE ×2 (04:45→06:15)
[2023-06-01] MEDS ORDERED: methylPREDNISolone SOD SUCC/PF 62.5 MG/ML VIAL IVP ONE (04:45)
[2023-06-01] MEDS ORDERED: ALBUTEROL SULFATE 0.083% 2.5 MG/3 ML VIAL.NEB INH ONE ×3 (04:45→15:45)
[2023-06-01 05:00] LABS: BASOPHILS # (AUTO) 0.1 K/uL (0.0-0.2); BASOPHILS % (AUTO) 1.4 % (0.0-2.0); EOSINOPHILS # (AUTO) 0.1 K/uL (0.0-0.4); EOSINOPHILS % (AUTO) 2.9 % (0.0-4.0); HEMATOCRIT 30.7 % (36-48); HEMOGLOBIN 9.5 g/dL (12.0-16.0); LYMPHOCYTES # (AUTO) 1.5 K/uL (1.0-5.5); MEAN CORPUSCULAR HEMOGLOBIN 25 pg (27-31); MEAN CORPUSCULAR HGB CONC 31 % (32-36); MEAN CORPUSCULAR VOLUME 79 fL (79.0-98.0); MONOCYTES # (AUTO) 0.4 K/uL (0.0-1.0); MONOCYTES % (AUTO) 9.7 % (1.7-9.3); NEUTROPHILS # (AUTO) 2.1 K/uL (1.8-7.7); PLATELET COUNT (AUTO) 273 K/uL (130-430); RED BLOOD CELL COUNT(AUTO) 3.87 MIL/uL (4.2-6.2); RED CELL DISTRIBUTION WIDTH 23.5 % (9.0-15.0); WHITE BLOOD COUNT (AUTO) 4.2 K/uL (4.8-10.8)
[2023-06-01 05:08] LABS: ANION GAP 12 (5-15); CALCIUM 8.5 mg/dL (8.4-11.0); CHLORIDE 102 mmol/L (98-107); CREATININE 1.55 mg/dL (0.55-1.30); GFR AFRICAN AMERICAN 46 mL/min (>90); GLUCOSE 92 mg/dL (74-106); UREA NITROGEN, BLOOD 19 mg/dL (8-21)
[2023-06-01 05:27] LABS: ALANINE AMINOTRANSFERASE 29 U/L (12-78); ALBUMIN 3.6 g/dL (3.4-4.8); ASPARTATE AMINOTRANSFERASE 42 U/L (10-37); TOTAL BILIRUBIN 0.3 mg/dL (0.0-1.0)
[2023-06-01] MEDS ORDERED: ASPIRIN 325 MG TABLET PO ONE (05:45)
[2023-06-01] MEDS ORDERED: MORPHINE 4 MG INJ. 4 MG/ML VIAL IVP ONE (06:00)
[2023-06-01] MEDS ORDERED: ONDANSETRON HCL 4 MG/2 ML VIAL IVP ONE (06:00)
[2023-06-01] MEDS ORDERED: FURO-150 PO (06:59)
[2023-06-01] MEDS ORDERED: SELE800T PO (06:59)
[2023-06-01] MEDS ORDERED: ONDA-8 TL (06:59)
[2023-06-01] MEDS ORDERED: BACL10TA PO (06:59)
[2023-06-01] MEDS ORDERED: LORazepam 2 MG/ML VIAL IVP ONE (07:30)
[2023-06-01] MEDS ORDERED: iohexoL 350 mgI/mL, 100 ML INFUS..BTL IV ONE (09:15)
[2023-06-01] MEDS ORDERED: FLUTICASONE 500 mCg/SALMETEROL 50 mCg DISKUS W.DEV IH SCH (14:45)
[2023-06-01] MEDS: DOCUSATE SODIUM 100 MG CAPSULE PO SCH (14:45)
[2023-06-01] MEDS ORDERED: BACLOFEN 10 MG TABLET PO PRN (14:45)
[2023-06-01] MEDS ORDERED: ALBUTEROL SULFATE 0.083% 2.5 MG/3 ML VIAL.NEB INH SCH (19:00)
[2023-06-01] MEDS: ALBUTEROL SULFATE 0.083% 2.5 MG/3 ML VIAL.NEB INH SCH ×2 (20:27→23:10)
[2023-06-01] MEDS: BUDESONIDE 0.5 MG/2 ML AMPUL.NEB INH SCH (20:28)
[2023-06-01] MEDS ORDERED: SELEXIPAG PO SCH (21:00)
[2023-06-01] MEDS: SILDENAFIL CITRATE 20 MG TABLET PO SCH (21:56)
[2023-06-01] MEDS: POTASSIUM CHLORIDE 10 MEQ TAB.PRT.SR PO SCH (21:56)
[2023-06-01] MEDS: LORazepam 2 MG/ML VIAL IVP PRN (21:57)
[2023-06-02] VITALS (33 sets, daily range): BP systolic 93–164; PULSE 22–114; RESP 16–33; TEMP 97.4–98.4; O2SAT 90–99
[2023-06-02] MEDS: ALBUTEROL SULFATE 0.083% 2.5 MG/3 ML VIAL.NEB INH SCH ×5 (03:05→19:43)
[2023-06-02] MEDS: LORazepam 2 MG/ML VIAL IVP PRN ×3 (04:01→20:26)
[2023-06-02 05:27] LABS: BASOPHILS % (AUTO) 0.3 % (0.0-2.0); HEMATOCRIT 29.6 % (36-48); HEMOGLOBIN 9.2 g/dL (12.0-16.0); LYMPHOCYTES # (AUTO) 0.6 K/uL (1.0-5.5); LYMPHOCYTES % (AUTO) 14.5 % (20.5-51.5); MEAN CORPUSCULAR HEMOGLOBIN 25 pg (27-31); MEAN CORPUSCULAR HGB CONC 31 % (32-36); MEAN CORPUSCULAR VOLUME 80 fL (79.0-98.0); MONOCYTES # (AUTO) 0.6 K/uL (0.0-1.0); MONOCYTES % (AUTO) 14.9 % (1.7-9.3); NEUTROPHILS # (AUTO) 3.1 K/uL (1.8-7.7); NEUTROPHILS % (AUTO) 70.3 % (40.0-70.0); PLATELET COUNT (AUTO) 278 K/uL (130-430); RED BLOOD CELL COUNT(AUTO) 3.69 MIL/uL (4.2-6.2); RED CELL DISTRIBUTION WIDTH 25.2 % (9.0-15.0); WHITE BLOOD COUNT (AUTO) 4.4 K/uL (4.8-10.8)
[2023-06-02 06:11] LABS: CALCIUM 8.7 mg/dL (8.4-11.0); CREATININE 1.07 mg/dL (0.55-1.30)
[2023-06-02] MEDS: BUDESONIDE 0.5 MG/2 ML AMPUL.NEB INH SCH ×2 (07:10→19:55)
[2023-06-02] MEDS: SILDENAFIL CITRATE 20 MG TABLET PO SCH ×3 (08:36→20:25)
[2023-06-02] MEDS: SPIRONOLACTONE 25 MG TABLET (ALDACTONE) PO SCH (08:37)
[2023-06-02] MEDS: LOSARTAN POTASSIUM 50 MG TABLET (COZAAR) PO SCH (08:37)
[2023-06-02] MEDS: POTASSIUM CHLORIDE 10 MEQ TAB.PRT.SR PO SCH ×2 (08:37→20:25)
[2023-06-02] MEDS: DOCUSATE SODIUM 100 MG CAPSULE PO SCH (08:37)
[2023-06-02] MEDS: FUROSEMIDE 20 MG TABLET PO SCH (08:38)
[2023-06-02] MEDS ORDERED: SELEXIPAG PO SCH (09:00)
[2023-06-02] MEDS ORDERED: MACITENTAN PO SCH (09:00)
[2023-06-02] MEDS ORDERED: VALSARTAN Non-Formulary 80 MG TABLET PO SCH (09:00)
[2023-06-02] MEDS ORDERED: MACITENTAN 10 MG PO SCH (09:00)
[2023-06-02] MEDS: ONDANSETRON 4 MG ODT TAB TL PRN (09:22)
[2023-06-02] MEDS: OPSUMIT 10 MG PO SCH (09:23)
[2023-06-02] MEDS: UPTRAVI 800 MCG PO SCH ×2 (09:25→20:25)
[2023-06-02] MEDS ORDERED: FUROSEMIDE 20 MG/2 ML VIAL IVP ONE (16:15)
[2023-06-02] MEDS ORDERED: FUROSEMIDE 20 MG/2 ML VIAL ONE (16:45)
[2023-06-03] VITALS (31 sets, daily range): BP systolic 90–138; PULSE 65–106; RESP 7–28; TEMP 97.8–98.6; O2SAT 86–99
[2023-06-03] MEDS: ALBUTEROL SULFATE 0.083% 2.5 MG/3 ML VIAL.NEB INH SCH ×4 (01:08→19:13)
[2023-06-03 05:39] LABS: BASOPHILS % (AUTO) 0.7 % (0.0-2.0); EOSINOPHILS # (AUTO) 0.1 K/uL (0.0-0.4); EOSINOPHILS % (AUTO) 1.5 % (0.0-4.0); HEMOGLOBIN 9.6 g/dL (12.0-16.0); LYMPHOCYTES # (AUTO) 1.2 K/uL (1.0-5.5); LYMPHOCYTES % (AUTO) 27.9 % (20.5-51.5); MEAN CORPUSCULAR HEMOGLOBIN 25 pg (27-31); MEAN CORPUSCULAR HGB CONC 31 % (32-36); MEAN CORPUSCULAR VOLUME 81 fL (79.0-98.0); MONOCYTES # (AUTO) 0.4 K/uL (0.0-1.0); MONOCYTES % (AUTO) 10.1 % (1.7-9.3); NEUTROPHILS # (AUTO) 2.5 K/uL (1.8-7.7); NEUTROPHILS % (AUTO) 59.8 % (40.0-70.0); PLATELET COUNT (AUTO) 257 K/uL (130-430); RED BLOOD CELL COUNT(AUTO) 3.84 MIL/uL (4.2-6.2); WHITE BLOOD COUNT (AUTO) 4.3 K/uL (4.8-10.8)
[2023-06-03 05:47] LABS: CALCIUM 8.8 mg/dL (8.4-11.0); CREATININE 0.94 mg/dL (0.55-1.30)
[2023-06-03] MEDS: BUDESONIDE 0.5 MG/2 ML AMPUL.NEB INH SCH ×2 (07:01→19:13)
[2023-06-03] MEDS: UPTRAVI 800 MCG PO SCH ×2 (09:15→20:32)
[2023-06-03] MEDS: OPSUMIT 10 MG PO SCH (09:15)
[2023-06-03] MEDS: POTASSIUM CHLORIDE 10 MEQ TAB.PRT.SR PO SCH ×2 (09:17→20:32)
[2023-06-03] MEDS: DOCUSATE SODIUM 100 MG CAPSULE PO SCH (09:17)
[2023-06-03] MEDS: SILDENAFIL CITRATE 20 MG TABLET PO SCH ×3 (09:19→20:32)
[2023-06-03] MEDS: SPIRONOLACTONE 25 MG TABLET (ALDACTONE) PO SCH (09:19)
[2023-06-03] MEDS: FUROSEMIDE 20 MG TABLET PO SCH (09:21)
[2023-06-03] MEDS: LOSARTAN POTASSIUM 50 MG TABLET (COZAAR) PO SCH (09:21)
[2023-06-03] MEDS: LORazepam 2 MG/ML VIAL IVP PRN (18:22)
[2023-06-04] VITALS (17 sets, daily range): BP systolic 82–117; PULSE 68–110; RESP 14–22; TEMP 96.9–98.4; O2SAT 90–98
[2023-06-04] MEDS: ALBUTEROL SULFATE 0.083% 2.5 MG/3 ML VIAL.NEB INH SCH ×4 (01:04→20:25)
[2023-06-04 05:20] LABS: CALCIUM 8.9 mg/dL (8.4-11.0); CREATININE 1.03 mg/dL (0.55-1.30)
[2023-06-04 05:29] LABS: BASOPHILS % (AUTO) 0.7 % (0.0-2.0); EOSINOPHILS # (AUTO) 0.2 K/uL (0.0-0.4); EOSINOPHILS % (AUTO) 3.4 % (0.0-4.0); HEMATOCRIT 32.8 % (36-48); HEMOGLOBIN 10.1 g/dL (12.0-16.0); LYMPHOCYTES # (AUTO) 1.3 K/uL (1.0-5.5); LYMPHOCYTES % (AUTO) 27.9 % (20.5-51.5); MEAN CORPUSCULAR HEMOGLOBIN 25 pg (27-31); MEAN CORPUSCULAR HGB CONC 31 % (32-36); MEAN CORPUSCULAR VOLUME 81 fL (79.0-98.0); MONOCYTES # (AUTO) 0.5 K/uL (0.0-1.0); MONOCYTES % (AUTO) 11.4 % (1.7-9.3); NEUTROPHILS # (AUTO) 2.6 K/uL (1.8-7.7); NEUTROPHILS % (AUTO) 56.6 % (40.0-70.0); PLATELET COUNT (AUTO) 273 K/uL (130-430); RED BLOOD CELL COUNT(AUTO) 4.07 MIL/uL (4.2-6.2); WHITE BLOOD COUNT (AUTO) 4.6 K/uL (4.8-10.8)
[2023-06-04] MEDS: BUDESONIDE 0.5 MG/2 ML AMPUL.NEB INH SCH ×2 (07:25→20:25)
[2023-06-04] MEDS: LOSARTAN POTASSIUM 50 MG TABLET (COZAAR) PO SCH (08:32)
[2023-06-04] MEDS: POTASSIUM CHLORIDE 10 MEQ TAB.PRT.SR PO SCH ×2 (08:32→21:02)
[2023-06-04] MEDS: FUROSEMIDE 20 MG TABLET PO SCH (08:33)
[2023-06-04] MEDS: SPIRONOLACTONE 25 MG TABLET (ALDACTONE) PO SCH (08:33)
[2023-06-04] MEDS: DOCUSATE SODIUM 100 MG CAPSULE PO SCH (08:34)
[2023-06-04] MEDS: SILDENAFIL CITRATE 20 MG TABLET PO SCH ×3 (08:37→21:06)
[2023-06-04] MEDS: UPTRAVI 800 MCG PO SCH ×2 (08:38→21:01)
[2023-06-04] MEDS: OPSUMIT 10 MG PO SCH (08:38)
[2023-06-04] MEDS ORDERED: SILDENAFIL CITRATE 20 MG TABLET ONE (09:00)
[2023-06-04] MEDS ORDERED: FUROSEMIDE 20 MG TABLET ONE (09:03)
[2023-06-04] MEDS: LORazepam 2 MG/ML VIAL IVP PRN (18:49)
[2023-06-04] MEDS: ONDANSETRON 4 MG ODT TAB TL PRN (21:02)
[2023-06-05] VITALS (11 sets, daily range): BP systolic 109–124; PULSE 79–99; RESP 16–18; TEMP 97.7–98.6; O2SAT 94–97
[2023-06-05] MEDS: ALBUTEROL SULFATE 0.083% 2.5 MG/3 ML VIAL.NEB INH SCH ×3 (01:37→13:43)
[2023-06-05] MEDS: LORazepam 2 MG/ML VIAL IVP PRN ×2 (01:58→12:33)
[2023-06-05 05:20] LABS: BASOPHILS % (AUTO) 0.8 % (0.0-2.0); EOSINOPHILS # (AUTO) 0.2 K/uL (0.0-0.4); EOSINOPHILS % (AUTO) 3.7 % (0.0-4.0); HEMATOCRIT 32.5 % (36-48); HEMOGLOBIN 10.1 g/dL (12.0-16.0); LYMPHOCYTES # (AUTO) 1.3 K/uL (1.0-5.5); LYMPHOCYTES % (AUTO) 25.5 % (20.5-51.5); MEAN CORPUSCULAR HEMOGLOBIN 25 pg (27-31); MEAN CORPUSCULAR HGB CONC 31 % (32-36); MEAN CORPUSCULAR VOLUME 81 fL (79.0-98.0); MONOCYTES # (AUTO) 0.6 K/uL (0.0-1.0); MONOCYTES % (AUTO) 12.6 % (1.7-9.3); NEUTROPHILS # (AUTO) 2.9 K/uL (1.8-7.7); NEUTROPHILS % (AUTO) 57.4 % (40.0-70.0); PLATELET COUNT (AUTO) 273 K/uL (130-430); RED BLOOD CELL COUNT(AUTO) 4.01 MIL/uL (4.2-6.2); RED CELL DISTRIBUTION WIDTH 25.5 % (9.0-15.0)
[2023-06-05 05:53] LABS: CALCIUM 9.3 mg/dL (8.4-11.0); CREATININE 0.99 mg/dL (0.55-1.30)
[2023-06-05] MEDS: BUDESONIDE 0.5 MG/2 ML AMPUL.NEB INH SCH (07:21)
[2023-06-05] MEDS: UPTRAVI 800 MCG PO SCH (09:25)
[2023-06-05] MEDS: OPSUMIT 10 MG PO SCH (09:25)
[2023-06-05] MEDS: FUROSEMIDE 20 MG TABLET PO SCH (09:26)
[2023-06-05] MEDS: SPIRONOLACTONE 25 MG TABLET (ALDACTONE) PO SCH (09:26)
[2023-06-05] MEDS: SILDENAFIL CITRATE 20 MG TABLET PO SCH (09:26)
[2023-06-05] MEDS: POTASSIUM CHLORIDE 10 MEQ TAB.PRT.SR PO SCH (09:27)
[2023-06-05] MEDS: LOSARTAN POTASSIUM 50 MG TABLET (COZAAR) PO SCH (09:27)
[2023-06-05] MEDS: DOCUSATE SODIUM 100 MG CAPSULE PO SCH (09:27)
[2023-06-05] MEDS ORDERED: LOSA50TA3 PO (12:27)
== END 2023-06-05 14:40 | disposition home or self-care (01) | DRG 189 ==
LOC: SED 04:29 → STU 14:38 → SIC 20:14 → SMU 06-04 15:10 → STU 06-04 15:19
PROVIDERS: ADMIT Specialist; ATTEND Specialist
PROC: 5A09357 Assistance with Respiratory Ventilation, Less than 24 Consecutive Hours, Continuous Positive Airway Pressure (ICD-10-PCS; principal; 2023-06-02)
PROC: 5A09357 Assistance with Respiratory Ventilation, Less than 24 Consecutive Hours, Continuous Positive Airway Pressure (ICD-10-PCS; 2023-06-03)
PROC: 5A09357 Assistance with Respiratory Ventilation, Less than 24 Consecutive Hours, Continuous Positive Airway Pressure (ICD-10-PCS; 2023-06-04)
DX: J96.21 Acute and chronic respiratory failure with hypoxia (principal); J44.1 Chronic obstructive pulmonary disease with (acute) exacerbation; I27.0 Primary pulmonary hypertension; Z68.41 Body mass index [BMI] 40.0-44.9, adult; G47.33 Obstructive sleep apnea (adult) (pediatric); E66.01 Morbid (severe) obesity due to excess calories; Z20.822 Contact with and (suspected) exposure to COVID-19; D72.819 Decreased white blood cell count, unspecified; D64.9 Anemia, unspecified; Z88.0 Allergy status to penicillin; Z79.899 Other long term (current) drug therapy; Z98.891 History of uterine scar from previous surgery; Z99.81 Dependence on supplemental oxygen
CPT/HCPCS: 36415; 36600; 71045; 71275; 76376; 80048; 80053; 82803; 83880; 84484; 85025; 87081; 93306; 94640; 94660; 94760; 96374; 99291; G0378; J1940; J2060; J2270; J2405; J2930; J7613; J7626; Q0162; Q9967

== ENCOUNTER 2024-03-28 20:18 | Inpatient (IN) | payer OTHER ==
[~2024-03-28] VITALS: Ht 165.1 cm; Wt 110.0 kg
[~2024-03-28 20:18] MED LIST changes: +BACL10TA PO; +DILT120C89 PO; +DOXY100C5 PO; -FERR-69 PO; +LEVA15HF5 INH; +METO2.5T6 PO; -OMEP20CA15 PO; +ONDA-8 TL; +PANT20TA2 PO; +PRED10TA PO; -SELE1600 PO; +SELE800T PO; +SILD20TA10 PO; -SILD20TA2 PO
[2024-03-28 20:23] VITALS: BP_SYST 130; PULSE 127; RESP 22; TEMP 97; O2SAT 96
[2024-03-28] MEDS: IPRATROPIUM/ALBUTEROL SULFATE 3 ML AMPUL.NEB (DUONEB) INH ONE (20:31)
[2024-03-28] MEDS: methylPREDNISolone SOD SUCC/PF 62.5 MG/ML VIAL IVP ONE (20:36)
[2024-03-28 20:39] LABS: BASOPHILS % (AUTO) 0.3 % (0.0-2.0); EOSINOPHILS % (AUTO) 0.3 % (0.0-4.0); HEMATOCRIT 35.6 % (36-48); HEMOGLOBIN 11.9 g/dL (12.0-16.0); LYMPHOCYTES # (AUTO) 1.6 K/uL (1.0-5.5); LYMPHOCYTES % (AUTO) 16.3 % (20.5-51.5); MEAN CORPUSCULAR HEMOGLOBIN 26 pg (27-31); MEAN CORPUSCULAR HGB CONC 33 % (32-36); MEAN CORPUSCULAR VOLUME 79 fL (79.0-98.0); MONOCYTES # (AUTO) 0.6 K/uL (0.0-1.0); MONOCYTES % (AUTO) 6.4 % (1.7-9.3); NEUTROPHILS # (AUTO) 7.4 K/uL (1.8-7.7); NEUTROPHILS % (AUTO) 76.7 % (40.0-70.0); PLATELET COUNT (AUTO) 337 K/uL (130-430); RED BLOOD CELL COUNT(AUTO) 4.52 MIL/uL (4.2-6.2); RED CELL DISTRIBUTION WIDTH 22.2 % (9.0-15.0); WHITE BLOOD COUNT (AUTO) 9.6 K/uL (4.8-10.8)
[2024-03-28 21:11] LABS: ANION GAP 22 (5-15); CALCIUM 8.8 mg/dL (8.4-11.0); CARBON DIOXIDE 20 mmol/L (23-29); CHLORIDE 87 mmol/L (98-107); CREATININE 1.34 mg/dL (0.55-1.30); GFR AFRICAN AMERICAN 54 mL/min (>90); GFR NON AFRICAN-AMERICAN 44 mL/min (>90); GLUCOSE 104 mg/dL (74-106); SODIUM SERUM 129 mmol/L (136-145); UREA NITROGEN, BLOOD 13 mg/dL (8-21)
[2024-03-28 21:14] LABS: POTASSIUM 2.6 mmol/L (3.5-5.1)
[2024-03-28 21:20] LABS: ANISOCYTOSIS 2+; HYPOCHROMASIA 1+
[2024-03-28 21:21] LABS: OVALOCYTES FEW
[2024-03-28] MEDS: POTASSIUM CHLORIDE 20 MEQ TABLET.ER PO ONE (21:32)
[2024-03-28] MEDS: LORazepam 2 MG/ML VIAL IVP ONE ×2 (21:40→21:49)
[2024-03-28] MEDS ORDERED: TRIAMCINOLON (23:02)
[2024-03-28] MEDS ORDERED: DILT120C95 PO (23:02)
[2024-03-28] MEDS ORDERED: TIRZ5PEN3 SUBCUT (23:02)
[2024-03-28] MEDS ORDERED: LEVA15HF6 INH (23:02)
[2024-03-29] VITALS (13 sets, daily range): BP systolic 104–128; PULSE 96–107; RESP 18–20; TEMP 97.5–98.2; O2SAT 90–98
[2024-03-29] MEDS: IPRATROPIUM/ALBUTEROL SULFATE 3 ML AMPUL.NEB (DUONEB) ONE (08:10)
[2024-03-29] MEDS: IPRATROPIUM/ALBUTEROL SULFATE 3 ML AMPUL.NEB (DUONEB) INH SCH ×2 (08:15→15:17)
[2024-03-29] MEDS ORDERED: LORazepam 2 MG/ML VIAL IVP PRN (11:30)
[2024-03-29] MEDS ORDERED: NALOXONE HCL 0.4 MG/ML AMP (NARCAN) IVP PRN ×2 (11:30)
[2024-03-29] MEDS ORDERED: HYDROcodone/ACETAMIN 5-325 MG TAB (NORCO/ VICODIN) PO PRN (11:30)
[2024-03-29] MEDS ORDERED: ACETAMINOPHEN 325 MG TABLET PO PRN ×2 (11:30→12:30)
[2024-03-29] MEDS ORDERED: HYDROcodone/ACETAMIN 10-325 MG TAB PO PRN (11:30)
[2024-03-29 12:22] LABS: BASOPHILS % (AUTO) 0.1 % (0.0-2.0); HEMATOCRIT 34.7 % (36-48); HEMOGLOBIN 11.7 g/dL (12.0-16.0); LYMPHOCYTES # (AUTO) 0.8 K/uL (1.0-5.5); LYMPHOCYTES % (AUTO) 7.1 % (20.5-51.5); MEAN CORPUSCULAR HEMOGLOBIN 27 pg (27-31); MEAN CORPUSCULAR HGB CONC 34 % (32-36); MEAN CORPUSCULAR VOLUME 80 fL (79.0-98.0); MONOCYTES # (AUTO) 0.4 K/uL (0.0-1.0); MONOCYTES % (AUTO) 3.9 % (1.7-9.3); NEUTROPHILS # (AUTO) 9.6 K/uL (1.8-7.7); NEUTROPHILS % (AUTO) 88.9 % (40.0-70.0); PLATELET COUNT (AUTO) 323 K/uL (130-430); RED BLOOD CELL COUNT(AUTO) 4.36 MIL/uL (4.2-6.2); RED CELL DISTRIBUTION WIDTH 22.5 % (9.0-15.0); WHITE BLOOD COUNT (AUTO) 10.8 K/uL (4.8-10.8)
[2024-03-29 12:35] LABS: CALCIUM 8.7 mg/dL (8.4-11.0); CREATININE 1.2 mg/dL (0.55-1.30); POTASSIUM 3.1 mmol/L (3.5-5.1)
[2024-03-29 14:27] LABS: BLOOD, URINE NEGATIVE (NEGATIVE); COLOR,URINE YELLOW (YELLOW); GLUCOSE,URINE NEGATIVE (NEGATIVE); KETONES,URINE 1+ (NEGATIVE); LEUKOCYTE ESTERASE ,URINE NEGATIVE (NEGATIVE); NITRITE, URINE NEGATIVE (NEGATIVE); PROTEIN URINE NEGATIVE (NEGATIVE); UROBILINOGEN,URINE 0.2 (0.2-1.0)
[2024-03-29 14:28] LABS: BILIRUBIN,URINE 1+ (NEGATIVE); CLARITY/URINE SLIGHTLY HAZY (CLEAR)
[2024-03-29 14:35] LABS: BACTERIA,URINE RARE /HPF (None Seen); RBC,URINE 0-3 /HPF (0-3); WBC,URINE 0-3 /HPF (0-3)
[2024-03-29] MEDS: NORMAL SALINE 5 ML DISP.SYRIN IVF SCH (14:39)
[2024-03-29] MEDS: POTASSIUM CHLORIDE 40 MEQ in NS 250 ML IV ONE (14:40)
[2024-03-29] MEDS ORDERED: MAGNESIUM SULFATE 50 ML IV ONE ×2 (14:45→18:00)
[2024-03-29] MEDS: LORazepam 1 MG TABLET PO PRN (14:46)
[2024-03-29] MEDS ORDERED: IPRATROPIUM BROM 0.5 MG/2.5 ML VIAL.NEB (ATROVENT) INH SCH (15:00)
[2024-03-29] MEDS ORDERED: ALBUTEROL SULFATE 0.083% 2.5 MG/3 ML VIAL.NEB INH SCH (15:00)
[2024-03-29] MEDS ORDERED: BACLOFEN 10 MG TABLET PO PRN (19:15)
[2024-03-29] MEDS: BUDESONIDE 0.5 MG/2 ML AMPUL.NEB INH SCH (19:44)
[2024-03-29] MEDS: predniSONE 10 MG TABLET PO SCH (20:46)
[2024-03-29] MEDS: DOCUSATE SODIUM 100 MG CAPSULE PO SCH (20:47)
[2024-03-29] MEDS: FUROSEMIDE 20 MG TABLET PO SCH (20:47)
[2024-03-29] MEDS: POTASSIUM CHLORIDE 20 MEQ TABLET.ER PO SCH (20:48)
[2024-03-29] MEDS: SILDENAFIL CITRATE 20 MG TABLET PO SCH (20:48)
[2024-03-29] MEDS: LEVOFLOXACIN 250 MG/D5W 50 ML IV SCH (20:49)
[2024-03-29] MEDS ORDERED: DOXYCYCLINE HYCLATE 100 MG TABLET PO SCH (21:00)
[2024-03-29 21:35] LABS: URINE SODIUM, RANDOM 5 mmol/L (40-220)
[2024-03-29 22:29] LABS: POTASSIUM,URINE RANDOM 47 mmol/L (12-75)
[2024-03-29] MEDS: MAGNESIUM SULFATE 50 ML IV ONE (23:33)
[2024-03-30] VITALS (13 sets, daily range): BP systolic 90–118; PULSE 63–120; RESP 17–20; TEMP 97.4–98.3; O2SAT 92–96
[2024-03-30 04:55] LABS: BASOPHILS % (AUTO) 0.1 % (0.0-2.0); HEMATOCRIT 31.4 % (36-48); HEMOGLOBIN 10.4 g/dL (12.0-16.0); LYMPHOCYTES # (AUTO) 0.7 K/uL (1.0-5.5); LYMPHOCYTES % (AUTO) 5.8 % (20.5-51.5); MEAN CORPUSCULAR HEMOGLOBIN 26 pg (27-31); MEAN CORPUSCULAR HGB CONC 33 % (32-36); MEAN CORPUSCULAR VOLUME 80 fL (79.0-98.0); MONOCYTES # (AUTO) 0.6 K/uL (0.0-1.0); NEUTROPHILS # (AUTO) 11.3 K/uL (1.8-7.7); NEUTROPHILS % (AUTO) 89.1 % (40.0-70.0); PLATELET COUNT (AUTO) 300 K/uL (130-430); RED BLOOD CELL COUNT(AUTO) 3.93 MIL/uL (4.2-6.2); RED CELL DISTRIBUTION WIDTH 22.2 % (9.0-15.0); WHITE BLOOD COUNT (AUTO) 12.7 K/uL (4.8-10.8)
[2024-03-30 05:34] LABS: ALBUMIN 3.4 g/dL (3.4-4.8); CALCIUM 8.2 mg/dL (8.4-11.0); CREATININE 0.98 mg/dL (0.55-1.30); PHOSPHORUS 3.3 mg/dL (2.7-4.5); THYROID STIMULATING HORMONE 0.85 uIu/mL (0.36-3.74); TOTAL BILIRUBIN 0.5 mg/dL (0.0-1.0); TOTAL PROTEIN, SERUM 7.5 g/dL (6.4-8.3)
[2024-03-30 06:01] LABS: POTASSIUM 2.8 mmol/L (3.5-5.1)
[2024-03-30] MEDS: metOLazone 2.5 MG TABLET PO SCH (08:53)
[2024-03-30] MEDS: SPIRONOLACTONE 25 MG TABLET (ALDACTONE) PO SCH (08:54)
[2024-03-30] MEDS: LOSARTAN POTASSIUM 50 MG TABLET (COZAAR) PO SCH (08:55)
[2024-03-30] MEDS: DILTIAZEM HCL 120 MG CAP.SR.24H PO SCH (08:58)
[2024-03-30] MEDS ORDERED: KCL 40 mEq in 100 mL (PREMIX) 100 ML IV ONE (10:15)
[2024-03-30] MEDS: PANTOPRAZOLE SODIUM 40 MG TAB PO SCH (10:28)
[2024-03-30] MEDS: POTASSIUM CHLORIDE 40 MEQ, LIDOCAINE JECT 2% PF 100 MG 75 MG in NS 250 ML IV ONE (10:33)
[2024-03-30] MEDS: FAMOTIDINE 20 MG TABLET PO ONE (15:16)
[2024-03-30] MEDS: ONDANSETRON HCL 4 MG/2 ML VIAL IVP PRN (15:17)
[2024-03-30] MEDS: FAMOTIDINE 20 MG TABLET PO SCH (21:30)
[2024-03-30] MEDS: LEVOFLOXACIN 250 MG/D5W 50 ML IV ONE (21:38)
[2024-03-31] VITALS (11 sets, daily range): BP systolic 91–118; PULSE 94–117; RESP 18–20; TEMP 97.4–99.6; O2SAT 94–98
[2024-03-31 05:41] LABS: BASOPHILS % (AUTO) 0.1 % (0.0-2.0); EOSINOPHILS % (AUTO) 0.3 % (0.0-4.0); HEMATOCRIT 31.8 % (36-48); HEMOGLOBIN 10.3 g/dL (12.0-16.0); LYMPHOCYTES # (AUTO) 1.1 K/uL (1.0-5.5); LYMPHOCYTES % (AUTO) 9.2 % (20.5-51.5); MEAN CORPUSCULAR HEMOGLOBIN 26 pg (27-31); MEAN CORPUSCULAR HGB CONC 33 % (32-36); MEAN CORPUSCULAR VOLUME 81 fL (79.0-98.0); MONOCYTES % (AUTO) 8.3 % (1.7-9.3); NEUTROPHILS # (AUTO) 9.4 K/uL (1.8-7.7); NEUTROPHILS % (AUTO) 82.1 % (40.0-70.0); PLATELET COUNT (AUTO) 293 K/uL (130-430); RED BLOOD CELL COUNT(AUTO) 3.93 MIL/uL (4.2-6.2); RED CELL DISTRIBUTION WIDTH 22.3 % (9.0-15.0); WHITE BLOOD COUNT (AUTO) 11.5 K/uL (4.8-10.8)
[2024-03-31 05:48] LABS: ERYTHROCYTE SEDIMENTATION RATE 55 MM/HR (0-20)
[2024-03-31 06:16] LABS: CALCIUM 8.7 mg/dL (8.4-11.0); CREATININE 3.31 mg/dL (0.55-1.30); PHOSPHORUS 4.2 mg/dL (2.7-4.5); POTASSIUM 3.2 mmol/L (3.5-5.1)
[2024-03-31] MEDS: POTASSIUM CHLORIDE 20 MEQ TABLET.ER PO ONE (13:52)
[2024-03-31] MEDS: MAGNESIUM SULFATE 50 ML IV ONE (13:52)
[2024-04-01] VITALS (13 sets, daily range): BP systolic 97–110; PULSE 73–105; RESP 16–18; TEMP 96.6–98.4; O2SAT 73–96
[2024-04-01 06:12] LABS: BASOPHILS % (AUTO) 0.1 % (0.0-2.0); EOSINOPHILS % (AUTO) 0.2 % (0.0-4.0); HEMATOCRIT 32.2 % (36-48); HEMOGLOBIN 10.6 g/dL (12.0-16.0); LYMPHOCYTES # (AUTO) 0.8 K/uL (1.0-5.5); MEAN CORPUSCULAR HEMOGLOBIN 27 pg (27-31); MEAN CORPUSCULAR HGB CONC 33 % (32-36); MEAN CORPUSCULAR VOLUME 80 fL (79.0-98.0); MONOCYTES # (AUTO) 0.7 K/uL (0.0-1.0); MONOCYTES % (AUTO) 8.2 % (1.7-9.3); NEUTROPHILS % (AUTO) 82.5 % (40.0-70.0); PLATELET COUNT (AUTO) 308 K/uL (130-430); RED BLOOD CELL COUNT(AUTO) 4.01 MIL/uL (4.2-6.2); RED CELL DISTRIBUTION WIDTH 22.6 % (9.0-15.0); WHITE BLOOD COUNT (AUTO) 8.5 K/uL (4.8-10.8)
[2024-04-01 06:23] LABS: CALCIUM 9.2 mg/dL (8.4-11.0); CREATININE 2.42 mg/dL (0.55-1.30); POTASSIUM 3.6 mmol/L (3.5-5.1)
[2024-04-01 06:25] LABS: ERYTHROCYTE SEDIMENTATION RATE 70 MM/HR (0-20)
[2024-04-02] VITALS (12 sets, daily range): BP systolic 102–145; PULSE 98–109; RESP 16–20; TEMP 97.3–98.7; O2SAT 90–95
[2024-04-02 04:28] LABS: ERYTHROCYTE SEDIMENTATION RATE 70 MM/HR (0-20)
[2024-04-02 05:01] LABS: BASOPHILS % (AUTO) 0.1 % (0.0-2.0); EOSINOPHILS % (AUTO) 0.4 % (0.0-4.0); HEMATOCRIT 32.6 % (36-48); HEMOGLOBIN 10.6 g/dL (12.0-16.0); LYMPHOCYTES % (AUTO) 11.1 % (20.5-51.5); MEAN CORPUSCULAR HEMOGLOBIN 26 pg (27-31); MEAN CORPUSCULAR HGB CONC 33 % (32-36); MEAN CORPUSCULAR VOLUME 81 fL (79.0-98.0); NEUTROPHILS # (AUTO) 6.7 K/uL (1.8-7.7); NEUTROPHILS % (AUTO) 77.4 % (40.0-70.0); PLATELET COUNT (AUTO) 314 K/uL (130-430); RED BLOOD CELL COUNT(AUTO) 4.02 MIL/uL (4.2-6.2); RED CELL DISTRIBUTION WIDTH 22.9 % (9.0-15.0); WHITE BLOOD COUNT (AUTO) 8.7 K/uL (4.8-10.8)
[2024-04-02 05:02] LABS: ALBUMIN 3.2 g/dL (3.4-4.8); CALCIUM 8.8 mg/dL (8.4-11.0); CREATININE 1.63 mg/dL (0.55-1.30); TOTAL BILIRUBIN 0.5 mg/dL (0.0-1.0); TOTAL PROTEIN, SERUM 7.4 g/dL (6.4-8.3)
[2024-04-02 05:49] LABS: POTASSIUM 2.9 mmol/L (3.5-5.1)
[2024-04-02] MEDS: FUROSEMIDE 20 MG TABLET PO SCH (09:35)
[2024-04-02] MEDS: POTASSIUM CHLORIDE 40 MEQ, LIDOCAINE JECT 2% PF 100 MG 75 MG in NS 250 ML IV ONE (10:57)
[2024-04-02] MEDS: BUMEX 1 MG/4 ML VIAL IVP ONE (12:46)
[2024-04-02] MEDS: MAGNESIUM SULFATE 50 ML IV ONE (12:48)
[2024-04-03] VITALS (8 sets, daily range): BP systolic 93–117; PULSE 65–108; RESP 16–18; TEMP 97–98.2; O2SAT 93–99
[2024-04-03 04:38] LABS: BASOPHILS % (AUTO) 0.1 % (0.0-2.0); EOSINOPHILS % (AUTO) 0.2 % (0.0-4.0); HEMATOCRIT 33.4 % (36-48); HEMOGLOBIN 11.2 g/dL (12.0-16.0); LYMPHOCYTES # (AUTO) 0.8 K/uL (1.0-5.5); LYMPHOCYTES % (AUTO) 9.4 % (20.5-51.5); MEAN CORPUSCULAR HEMOGLOBIN 27 pg (27-31); MEAN CORPUSCULAR HGB CONC 33 % (32-36); MEAN CORPUSCULAR VOLUME 80 fL (79.0-98.0); MONOCYTES # (AUTO) 1.2 K/uL (0.0-1.0); MONOCYTES % (AUTO) 13.5 % (1.7-9.3); NEUTROPHILS # (AUTO) 6.8 K/uL (1.8-7.7); NEUTROPHILS % (AUTO) 76.8 % (40.0-70.0); PLATELET COUNT (AUTO) 361 K/uL (130-430); RED BLOOD CELL COUNT(AUTO) 4.17 MIL/uL (4.2-6.2); RED CELL DISTRIBUTION WIDTH 22.3 % (9.0-15.0); WHITE BLOOD COUNT (AUTO) 8.8 K/uL (4.8-10.8)
[2024-04-03 05:01] LABS: ALBUMIN 3.4 g/dL (3.4-4.8); CALCIUM 9.5 mg/dL (8.4-11.0); CREATININE 1.35 mg/dL (0.55-1.30); TOTAL BILIRUBIN 0.5 mg/dL (0.0-1.0); TOTAL PROTEIN, SERUM 8.2 g/dL (6.4-8.3)
[2024-04-03 05:41] LABS: POTASSIUM 2.8 mmol/L (3.5-5.1)
[2024-04-03] MEDS: MAGNESIUM OXIDE 400 MG TABLET PO SCH (09:09)
[2024-04-03] MEDS: POTASSIUM CHLORIDE 20 MEQ TABLET.ER PO SCH (09:09)
[2024-04-03] MEDS: POTASSIUM CHLORIDE 20 MEQ TABLET.ER PO ONE ×2 (13:06→14:15)
[2024-04-03] MEDS ORDERED: POTA-197 PO (13:19)
== END 2024-04-03 14:30 | disposition home or self-care (01) | DRG 189 ==
LOC: SED 20:18 → STU 21:49
PROVIDERS: ADMIT Preventive Medicine Preventive Medicine/Occupational Environmental Medicine; ATTEND Specialist
PROC: 5A09357 Assistance with Respiratory Ventilation, Less than 24 Consecutive Hours, Continuous Positive Airway Pressure (ICD-10-PCS; principal; 2024-03-31)
PROC: 5A09357 Assistance with Respiratory Ventilation, Less than 24 Consecutive Hours, Continuous Positive Airway Pressure (ICD-10-PCS; 2024-04-03)
DX: J96.01 Acute respiratory failure with hypoxia (principal); I21.A1 Myocardial infarction type 2; J44.1 Chronic obstructive pulmonary disease with (acute) exacerbation; J45.901 Unspecified asthma with (acute) exacerbation; N17.9 Acute kidney failure, unspecified; E87.1 Hypo-osmolality and hyponatremia; Z68.41 Body mass index [BMI] 40.0-44.9, adult; J44.0 Chronic obstructive pulmonary disease with (acute) lower respiratory infection; J20.9 Acute bronchitis, unspecified; E87.6 Hypokalemia; T50.2X5A Adverse effect of carbonic-anhydrase inhibitors, benzothiadiazides and other diuretics, initial encounter; E83.42 Hypomagnesemia; I27.21 Secondary pulmonary arterial hypertension; K21.9 Gastro-esophageal reflux disease without esophagitis; I11.0 Hypertensive heart disease with heart failure; I50.9 Heart failure, unspecified; D64.9 Anemia, unspecified; G47.33 Obstructive sleep apnea (adult) (pediatric); I27.81 Cor pulmonale (chronic); R73.9 Hyperglycemia, unspecified; E83.51 Hypocalcemia; E79.0 Hyperuricemia without signs of inflammatory arthritis and tophaceous disease; J98.4 Other disorders of lung; I49.9 Cardiac arrhythmia, unspecified; I49.1 Atrial premature depolarization; I49.3 Ventricular premature depolarization; E66.01 Morbid (severe) obesity due to excess calories; F41.9 Anxiety disorder, unspecified; Z88.0 Allergy status to penicillin; Y92.89 Other specified places as the place of occurrence of the external cause
CPT/HCPCS: 36415; 71045; 76770; 80048; 80053; 81000; 81001; 81015; 82533; 83735; 83880; 83930; 83935; 84100; 84302; 84443; 84484; 84550; 84999; 85025; 85651; 93005; 94070; 94640; 94660; 94760; 96374; 97112-GP; 97116-GP; 99291; G0378; J1956; J2060; J2405; J3475; J3480; J3490; J7050; J7512; J7626

== ENCOUNTER 2024-07-05 07:43 | Inpatient (IN) | payer OTHER ==
[2024-07-05] VITALS (7 sets, daily range): BP systolic 124–150; PULSE 70–123; RESP 18–26; TEMP 79.6–98.1; O2SAT 94–97
[~2024-07-05] VITALS: Ht 167.6 cm; Wt 108.9 kg
[~2024-07-05 07:43] MED LIST changes: -DILT120C89 PO; +DILT120C95 PO; -DOXY100C5 PO; +TIRZ5PEN3 SUBCUT; -VALS80TA2 PO
[2024-07-05] MEDS ORDERED: FOLIC ACID 1 MG, THIAMINE HCL 100 MG, MAGNESIUM SULFATE 1 GM, MVI 10 ML in NACL 0.9% 1,... IV ONE (08:00)
[2024-07-05 08:12] LABS: BASOPHILS # (AUTO) 0.1 K/uL (0.0-0.2); BASOPHILS % (AUTO) 0.4 % (0.0-2.0); HEMATOCRIT 40.2 % (36-48); HEMOGLOBIN 12.8 g/dL (12.0-16.0); LYMPHOCYTES # (AUTO) 1.2 K/uL (1.0-5.5); LYMPHOCYTES % (AUTO) 8.3 % (20.5-51.5); MEAN CORPUSCULAR HEMOGLOBIN 25 pg (27-31); MEAN CORPUSCULAR HGB CONC 32 % (32-36); MEAN CORPUSCULAR VOLUME 79 fL (79.0-98.0); MONOCYTES % (AUTO) 7.1 % (1.7-9.3); NEUTROPHILS # (AUTO) 12.3 K/uL (1.8-7.7); NEUTROPHILS % (AUTO) 84.2 % (40.0-70.0); PLATELET COUNT (AUTO) 348 K/uL (130-430); RED CELL DISTRIBUTION WIDTH 21.7 % (9.0-15.0); WHITE BLOOD COUNT (AUTO) 14.6 K/uL (4.8-10.8)
[2024-07-05] MEDS: LORazepam 2 MG/ML VIAL IVP ONE (08:24)
[2024-07-05] MEDS: ONDANSETRON HCL 4 MG/2 ML VIAL IVP ONE (08:25)
[2024-07-05] MEDS: MORPHINE 2 MG/ML INJ. SYRINGE IVP ONE (08:26)
[2024-07-05] MEDS: PANTOPRAZOLE SODIUM 40 MG/VIAL (PROTONIX) IVP ONE (08:26)
[2024-07-05 08:50] LABS: ALBUMIN 4.5 g/dL (3.4-4.8); BILIRUBIN,DIRECT 0.4 mg/dL (0.0-0.3); CALCIUM 10.4 mg/dL (8.4-11.0); CREATININE 1.03 mg/dL (0.55-1.30); TOTAL PROTEIN, SERUM 8.7 g/dL (6.4-8.3)
[2024-07-05] MEDS ORDERED: MAGN400T10 PO (09:00)
[2024-07-05] MEDS ORDERED: HYDR50TA61 PO (09:00)
[2024-07-05] MEDS ORDERED: SERT-436 PO (09:00)
[2024-07-05] MEDS ORDERED: FLUT1AER PO (09:00)
[2024-07-05] MEDS ORDERED: VALS80TA31 PO (09:02)
[2024-07-05] MEDS: FOLIC ACID 1 MG, MVI 10 ML in NACL 0.9% 1,000 ML IV ONE (09:03)
[2024-07-05 09:07] LABS: ALCOHOL, BLOOD 143 mg/dL (<10)
[2024-07-05] MEDS: THIAMINE HCL 100 MG, MAGNESIUM SULFATE 1 GM in NS 100 ML IV ONE (09:28)
[2024-07-05 10:01] LABS: BILIRUBIN,URINE NEGATIVE (NEGATIVE); BLOOD, URINE 3+ (NEGATIVE); CLARITY/URINE CLEAR (CLEAR); COLOR,URINE YELLOW (YELLOW); GLUCOSE,URINE NEGATIVE (NEGATIVE); KETONES,URINE 3+ (NEGATIVE); LEUKOCYTE ESTERASE ,URINE NEGATIVE (NEGATIVE); NITRITE, URINE NEGATIVE (NEGATIVE); PROTEIN URINE 2+ (NEGATIVE); UROBILINOGEN,URINE 0.2 (0.2-1.0)
[2024-07-05 10:18] LABS: BARBITURATE, URINE NEGATIVE (NEG <=200); BENZODIAZEPINE, URINE NEGATIVE (NEG <=150); CANNABINOID, URINE NEGATIVE (NEG <=50); COCAINE, URINE NEGATIVE (NEG <=150); METHAMPHETAMINES SCREEN,URINE NEGATIVE (NEG <=500); OPIATE, URINE POSITIVE (NEG <=100); PHENCYCLIDINE SCREEN,URINE NEGATIVE (NEG <=25); UR TRICYCLIC ANTIDEPRESSANTS NEGATIVE (NEG <=300); URINE AMPHETAMINE NEGATIVE (NEG <=500); URINE METHADONE NEGATIVE (NEG <=200); URINE OXYCODONE SCREEN NEGATIVE (NEG <=100)
[2024-07-05 10:34] LABS: BACTERIA,URINE None Seen /HPF (None Seen); WBC,URINE NONE SEEN /HPF (0-3)
[2024-07-05] MEDS ORDERED: FOLIC ACID 1 MG, THIAMINE HCL 100 MG, MAGNESIUM SULFATE 1 GM, MVI 10 ML in NACL 0.9% 1,... IV SCH (14:45)
[2024-07-05] MEDS: ONDANSETRON HCL 4 MG/2 ML VIAL IVP SCH (16:05)
[2024-07-05] MEDS: chlordiazePOXIDE HCL 25 MG CAPSULE PO SCH (16:05)
[2024-07-05] MEDS: THIAMINE HCL 100 MG, MAGNESIUM SULFATE 1 GM in NS 100 ML IV SCH (16:14)
[2024-07-05] MEDS: POTASSIUM CHLORIDE 40 MEQ in NS 250 ML IV ONE (16:14)
[2024-07-05] MEDS: FOLIC ACID 1 MG, MVI 10 ML in NACL 0.9% 1,000 ML IV SCH (16:15)
[2024-07-05] MEDS: LORazepam 2 MG/ML VIAL IVP PRN (18:32)
[2024-07-05] MEDS: CLINDAMYCIN 300 MG in D5W 50 ML IV SCH (20:00)
[2024-07-05] MEDS ORDERED: LEVALBUTEROL Tartrate 15 GM HFA. 45 mCg/Actuation INH PRN (20:00)
[2024-07-05] MEDS: ALBUTEROL SULFATE 0.083% 2.5 MG/3 ML VIAL.NEB INH SCH (20:59)
[2024-07-05] MEDS ORDERED: PANTOPRAZOLE SODIUM 40 MG/VIAL (PROTONIX) IVP SCH (21:00)
[2024-07-05] MEDS ORDERED: SILDENAFIL CITRATE 20 MG TABLET PO SCH (21:00)
[2024-07-05] MEDS ORDERED: FLUTICASONE 500 mCg/SALMETEROL 50 mCg DISKUS W.DEV IH SCH (21:00)
[2024-07-05] MEDS ORDERED: cefTRIAXone 1 GM IVPB PREMIX 50 ML IV SCH (21:00)
[2024-07-05] MEDS: BUDESONIDE 0.5 MG/2 ML AMPUL.NEB INH SCH (21:01)
[2024-07-05 21:09] LABS: PROTHROMBIN TIME 10.4 SECS (9.5-12.5)
[2024-07-05 21:12] LABS: HEMATOCRIT 34.5 % (36-48); HEMOGLOBIN 10.9 g/dL (12.0-16.0); MEAN CORPUSCULAR HEMOGLOBIN 25 pg (27-31); MEAN CORPUSCULAR HGB CONC 32 % (32-36); MEAN CORPUSCULAR VOLUME 79 fL (79.0-98.0); PLATELET COUNT (AUTO) 268 K/uL (130-430); RED BLOOD CELL COUNT(AUTO) 4.37 MIL/uL (4.2-6.2); RED CELL DISTRIBUTION WIDTH 21.7 % (9.0-15.0); WHITE BLOOD COUNT (AUTO) 17.3 K/uL (4.8-10.8)
[2024-07-05 21:33] LABS: BAND % (MANUAL) 13 % (0-6); BASOPHILS % (MANUAL) 0 % (0-2); EOSINOPHILS % (MANUAL) 1 % (0-7); HYPOCHROMASIA 1+; LYMPHOCYTES % (MANUAL) 5 % (20-46); MONOCYTES % (MANUAL) 3 % (0-11); PLATELET ESTIMATE ADEQUATE (ADEQUATE)
[2024-07-05 21:34] LABS: ANISOCYTOSIS 2+; OVALOCYTES FEW; TEAR DROP CELLS FEW
[2024-07-05] MEDS: DOCUSATE SODIUM 100 MG CAPSULE PO ONE (21:45)
[2024-07-05] MEDS: SILDENAFIL CITRATE 20 MG TABLET PO SCH (21:45)
[2024-07-05] MEDS: FUROSEMIDE 20 MG TABLET PO SCH (21:46)
[2024-07-05] MEDS: DILTIAZEM HCL 120 MG CAP.SR.24H PO ONE (21:46)
[2024-07-05] MEDS: predniSONE 10 MG TABLET PO SCH (21:46)
[2024-07-05] MEDS: ONDANSETRON HCL 4 MG/2 ML VIAL IVP PRN (23:35)
[2024-07-06] VITALS (7 sets, daily range): BP systolic 109–139; PULSE 76–104; RESP 18–20; TEMP 97.7–98.2; O2SAT 93–97
[2024-07-06 06:28] LABS: BASOPHILS % (AUTO) 0.2 % (0.0-2.0); EOSINOPHILS % (AUTO) 0.1 % (0.0-4.0); HEMATOCRIT 31.4 % (36-48); HEMOGLOBIN 9.9 g/dL (12.0-16.0); LYMPHOCYTES # (AUTO) 0.5 K/uL (1.0-5.5); LYMPHOCYTES % (AUTO) 6.7 % (20.5-51.5); MEAN CORPUSCULAR HEMOGLOBIN 25 pg (27-31); MEAN CORPUSCULAR HGB CONC 32 % (32-36); MEAN CORPUSCULAR VOLUME 80 fL (79.0-98.0); MONOCYTES # (AUTO) 0.5 K/uL (0.0-1.0); MONOCYTES % (AUTO) 7.3 % (1.7-9.3); NEUTROPHILS % (AUTO) 85.7 % (40.0-70.0); PLATELET COUNT (AUTO) 210 K/uL (130-430); RED BLOOD CELL COUNT(AUTO) 3.93 MIL/uL (4.2-6.2); RED CELL DISTRIBUTION WIDTH 21.6 % (9.0-15.0)
[2024-07-06 06:29] LABS: CALCIUM 8.5 mg/dL (8.4-11.0); CREATININE 0.73 mg/dL (0.55-1.30); POTASSIUM 3.8 mmol/L (3.5-5.1)
[2024-07-06] MEDS ORDERED: FLUTICASONE/VILANTEROL 1 EACH BLST.W.DEV INH SCH (09:00)
[2024-07-06] MEDS ORDERED: PANTOPRAZOLE SODIUM 40 MG/VIAL (PROTONIX) IVP SCH (09:00)
[2024-07-06] MEDS: SERTRALINE HCL 50 MG TABLET PO SCH (09:12)
[2024-07-06] MEDS: BACLOFEN 10 MG TABLET PO SCH (09:12)
[2024-07-06] MEDS: SPIRONOLACTONE 25 MG TABLET (ALDACTONE) PO SCH (09:13)
[2024-07-06] MEDS: MAGNESIUM OXIDE 400 MG TABLET PO SCH (09:13)
[2024-07-06] MEDS: POTASSIUM CHLORIDE 20 MEQ TABLET.ER PO SCH (09:14)
[2024-07-06] MEDS: DILTIAZEM HCL 120 MG CAP.SR.24H PO SCH (09:14)
[2024-07-06] MEDS: PANTOPRAZOLE SODIUM 40 MG TAB PO SCH (09:15)
[2024-07-06] MEDS: LOSARTAN POTASSIUM 50 MG TABLET (COZAAR) PO SCH (09:16)
[2024-07-06] MEDS: DOCUSATE SODIUM 100 MG CAPSULE PO SCH (09:16)
[2024-07-06] MEDS: metOLazone 2.5 MG TABLET PO SCH (09:18)
[2024-07-06] MEDS ORDERED: ONDANSETRON HCL 4 MG/2 ML VIAL IVP PRN (15:00)
[2024-07-06] MEDS ORDERED: levalbuterol HCL 0.63 MG/3 ML VIAL.NEB INH PRN (15:30)
[2024-07-06 19:56] LABS: BASOPHILS % (AUTO) 0.2 % (0.0-2.0); EOSINOPHILS % (AUTO) 0.1 % (0.0-4.0); HEMATOCRIT 33.3 % (36-48); HEMOGLOBIN 10.6 g/dL (12.0-16.0); LYMPHOCYTES # (AUTO) 0.6 K/uL (1.0-5.5); LYMPHOCYTES % (AUTO) 8.9 % (20.5-51.5); MEAN CORPUSCULAR HEMOGLOBIN 25 pg (27-31); MEAN CORPUSCULAR HGB CONC 32 % (32-36); MEAN CORPUSCULAR VOLUME 79 fL (79.0-98.0); MONOCYTES # (AUTO) 0.7 K/uL (0.0-1.0); MONOCYTES % (AUTO) 9.8 % (1.7-9.3); NEUTROPHILS # (AUTO) 5.5 K/uL (1.8-7.7); PLATELET COUNT (AUTO) 219 K/uL (130-430); RED BLOOD CELL COUNT(AUTO) 4.21 MIL/uL (4.2-6.2); RED CELL DISTRIBUTION WIDTH 21.7 % (9.0-15.0); WHITE BLOOD COUNT (AUTO) 6.8 K/uL (4.8-10.8)
[2024-07-06] MEDS: ONDANSETRON 4 MG ODT TAB TL PRN (21:51)
[2024-07-07] VITALS (11 sets, daily range): BP systolic 102–112; PULSE 79–98; RESP 17–20; TEMP 97–99; O2SAT 92–99
[2024-07-07 06:52] LABS: BASOPHILS % (AUTO) 0.1 % (0.0-2.0); EOSINOPHILS % (AUTO) 0.2 % (0.0-4.0); HEMATOCRIT 34.8 % (36-48); HEMOGLOBIN 10.9 g/dL (12.0-16.0); LYMPHOCYTES # (AUTO) 0.7 K/uL (1.0-5.5); LYMPHOCYTES % (AUTO) 11.7 % (20.5-51.5); MEAN CORPUSCULAR HEMOGLOBIN 25 pg (27-31); MEAN CORPUSCULAR HGB CONC 32 % (32-36); MEAN CORPUSCULAR VOLUME 80 fL (79.0-98.0); MONOCYTES # (AUTO) 0.5 K/uL (0.0-1.0); PLATELET COUNT (AUTO) 220 K/uL (130-430); RED BLOOD CELL COUNT(AUTO) 4.37 MIL/uL (4.2-6.2); RED CELL DISTRIBUTION WIDTH 21.5 % (9.0-15.0); WHITE BLOOD COUNT (AUTO) 6.2 K/uL (4.8-10.8)
[2024-07-07 07:13] LABS: ALBUMIN 3.8 g/dL (3.4-4.8); BILIRUBIN,DIRECT 0.5 mg/dL (0.0-0.3); CALCIUM 9.6 mg/dL (8.4-11.0); CREATININE 0.82 mg/dL (0.55-1.30); POTASSIUM 3.4 mmol/L (3.5-5.1); TOTAL BILIRUBIN 1.3 mg/dL (0.0-1.0); TOTAL PROTEIN, SERUM 7.7 g/dL (6.4-8.3)
[2024-07-07 07:40] LABS: ERYTHROCYTE SEDIMENTATION RATE 58 MM/HR (0-20)
[2024-07-07 08:06] LABS: HEPATITIS A AB, IgM Negative (Negative); HEPATITIS B CORE AB, IgM Negative (Negative); HEPATITIS B SURFACE AG Negative (Negative); HEPATITIS C VIRUS AB Non Reactive (Non Reactive)
[2024-07-08] VITALS (10 sets, daily range): BP systolic 94–108; PULSE 83–96; RESP 16–18; TEMP 96.7–98.7; O2SAT 92–98
[2024-07-08 06:29] LABS: BASOPHILS % (AUTO) 0.1 % (0.0-2.0); EOSINOPHILS % (AUTO) 0.4 % (0.0-4.0); HEMATOCRIT 33.1 % (36-48); HEMOGLOBIN 11.1 g/dL (12.0-16.0); LYMPHOCYTES # (AUTO) 0.6 K/uL (1.0-5.5); LYMPHOCYTES % (AUTO) 9.8 % (20.5-51.5); MEAN CORPUSCULAR HEMOGLOBIN 26 pg (27-31); MEAN CORPUSCULAR HGB CONC 34 % (32-36); MEAN CORPUSCULAR VOLUME 78 fL (79.0-98.0); MONOCYTES # (AUTO) 0.5 K/uL (0.0-1.0); MONOCYTES % (AUTO) 8.5 % (1.7-9.3); NEUTROPHILS # (AUTO) 5.2 K/uL (1.8-7.7); NEUTROPHILS % (AUTO) 81.2 % (40.0-70.0); PLATELET COUNT (AUTO) 203 K/uL (130-430); RED BLOOD CELL COUNT(AUTO) 4.23 MIL/uL (4.2-6.2); WHITE BLOOD COUNT (AUTO) 6.4 K/uL (4.8-10.8)
[2024-07-08 06:38] LABS: CALCIUM 10.1 mg/dL (8.4-11.0); CREATININE 1.07 mg/dL (0.55-1.30); POTASSIUM 3.3 mmol/L (3.5-5.1)
[2024-07-08 06:50] LABS: ERYTHROCYTE SEDIMENTATION RATE 45 MM/HR (0-20)
[2024-07-08] MEDS: MULTIVITAMINS TAB 1 TABLET PO SCH (10:25)
[2024-07-08] MEDS: THIAMINE HCL 100 MG TABLET PO SCH (10:27)
[2024-07-08] MEDS: FOLIC ACID 1 MG TABLET PO SCH (10:27)
[2024-07-09] VITALS: BP_SYST 96; PULSE 80; RESP 18; TEMP 98.1
[2024-07-09 02:13] VITALS: O2SAT 95
[2024-07-09 05:07] LABS: BASOPHILS % (AUTO) 0.2 % (0.0-2.0); EOSINOPHILS % (AUTO) 0.5 % (0.0-4.0); HEMATOCRIT 34.4 % (36-48); HEMOGLOBIN 11.4 g/dL (12.0-16.0); LYMPHOCYTES # (AUTO) 0.6 K/uL (1.0-5.5); LYMPHOCYTES % (AUTO) 10.8 % (20.5-51.5); MEAN CORPUSCULAR HEMOGLOBIN 26 pg (27-31); MEAN CORPUSCULAR HGB CONC 33 % (32-36); MEAN CORPUSCULAR VOLUME 79 fL (79.0-98.0); MONOCYTES # (AUTO) 0.7 K/uL (0.0-1.0); MONOCYTES % (AUTO) 12.6 % (1.7-9.3); NEUTROPHILS % (AUTO) 75.9 % (40.0-70.0); PLATELET COUNT (AUTO) 209 K/uL (130-430); RED BLOOD CELL COUNT(AUTO) 4.35 MIL/uL (4.2-6.2); RED CELL DISTRIBUTION WIDTH 22.1 % (9.0-15.0); WHITE BLOOD COUNT (AUTO) 5.3 K/uL (4.8-10.8)
[2024-07-09 05:22] LABS: ALBUMIN 3.7 g/dL (3.4-4.8); CALCIUM 10.4 mg/dL (8.4-11.0); CREATININE 1.07 mg/dL (0.55-1.30); PHOSPHORUS 3.7 mg/dL (2.7-4.5); POTASSIUM 3.2 mmol/L (3.5-5.1); TOTAL BILIRUBIN 0.8 mg/dL (0.0-1.0); TOTAL PROTEIN, SERUM 7.7 g/dL (6.4-8.3)
[2024-07-09 05:29] LABS: ERYTHROCYTE SEDIMENTATION RATE 61 MM/HR (0-20)
[2024-07-09 08:00] VITALS: BP_SYST 105; PULSE 82; RESP 18; TEMP 98.2; O2SAT 95; O2SAT 97
[2024-07-09 08:15] VITALS: O2SAT 92
[2024-07-09 09:59] VITALS: BP_SYST 116; PULSE 88; RESP 18; TEMP 97.8; O2SAT 97
[2024-07-09 11:10] VITALS: BP_SYST 116; PULSE 88; RESP 16; TEMP 97.9; O2SAT 93
[2024-07-09] MEDS ORDERED: VITA1CAP PO (13:48)
[2024-07-09] MEDS ORDERED: PRED5TAB PO (13:50)
== END 2024-07-09 14:15 | disposition home health service (06) | DRG 377 ==
LOC: SED 07:43 → STU 10:23
PROVIDERS: ADMIT Specialist; ATTEND Specialist
DX: K29.21 Alcoholic gastritis with bleeding (principal); I21.A1 Myocardial infarction type 2; J44.1 Chronic obstructive pulmonary disease with (acute) exacerbation; F10.130 Alcohol abuse with withdrawal, uncomplicated; E66.01 Morbid (severe) obesity due to excess calories; I27.20 Pulmonary hypertension, unspecified; G47.33 Obstructive sleep apnea (adult) (pediatric); I50.9 Heart failure, unspecified; D64.9 Anemia, unspecified; D72.829 Elevated white blood cell count, unspecified; K70.10 Alcoholic hepatitis without ascites; Z79.899 Other long term (current) drug therapy; Z88.8 Allergy status to other drugs, medicaments and biological substances; Z68.38 Body mass index [BMI] 38.0-38.9, adult
CPT/HCPCS: 36415; 74181; 76705; 80048; 80053; 80074; 80076; 80307; 81000; 81001; 81015; 83690; 83735; 83880; 84100; 84484; 85007; 85025; 85027; 85610; 85651; 86886; 86900; 86901; 93005; 93306; 94640; 94660; 94664; 94760; 96365; 97116-GP; 97530-GP; 99285; G0378; G0482; J0696; J2060; J2270; J2405; J2470; J3411; J3475; J3480; J3490; J7030; J7050; J7060; J7512; J7626; Q0162